=== PATIENT | male | born 1945 | race Caucasian/White ===

== ENCOUNTER 2017-06-15 12:20 | Inpatient (IN) | payer MEDICARE, BC ==
[~2017-06-15] VITALS: Ht 190.5 cm; Wt 106.3 kg
[~2017-06-15 12:20] MED LIST: (None)20 M1 PO; AMLO5 PO; AMOCLA875 PO; ASPI81CH PO; Ambien5 MG PO; BUME2 PO; CHOL10002 PO; CLOP75 PO; Combigan Eye Dro5 ML OP; Combigan Eye Dro5 ML RIGHTEYE; Cranberry500 M1 PO; Crestor20 MG PO; FERR325 PO; FINA5 PO; FURO40 PO; FURO80 PO; HALO1 PO; HYDRA25 PO; LATANOPROST2.5 ML OP; Lisinopril2.5 MG PO; METF500 PO; METO100ER PO; METO50ER PO; Methazolamide50 MG PO; Micro-K10 MEQ PO; OFLO.3OPSO; OLME5TAB PO; PRED1SU BOTHEYES; PROCODE120; QUET100 PO; ROSU5 PO; SERT50 PO; TAMS.4ER PO; TRAZ50 PO; UBID10; UBID100 PO; Xalatan2.5 ML BOTHEYES
[2017-06-15 13:37] LABS: BASOPHILS ABSOLUTE AUTO 0.08 K/mm3 (0.00-0.23); BASOPHILS PERCENT AUTO 1 % (0-2); EOSINOPHILS ABSOLUTE AUTO 0.19 K/mm3 (0.00-0.68); EOSINOPHILS PERCENT AUTO 3 % (0-6); Hematocrit 31.2 % (37.0-53.0); Hemoglobin 10.2 g/dL (13.5-17.5); IMMATURE GRAN ABSOLUTE AUTO 0.02 K/mm3 (0.00-0.10); IMMATURE GRAN PERCENT AUTO 0 % (0-1); LYMPHOCYTES ABSOLUTE AUTO 1.07 K/mm3 (0.84-5.20); LYMPHOCYTES PERCENT AUTO 15 % (21-46); MONOCYTES ABSOLUTE AUTO 0.67 K/mm3 (0.16-1.47); MONOCYTES PERCENT AUTO 10 % (4-13); Mean Corpuscular HGB 31.6 pg (26.0-34.0); Mean Corpuscular HGB Conc 32.7 g/dL (31.5-36.5); Mean Corpuscular Volume 97 fL (80-100); NEUTROPHILS ABSOLUTE AUTO 4.97 K/mm3 (1.96-9.15); NEUTROPHILS PERCENT AUTO 71 % (41-73); RDW Coefficient Variation 13.2 % (11.7-14.2); Red Blood Cell Count 3.23 M/mm3 (4.30-5.90)
[2017-06-15 13:39] LABS: Platelet Count 359 K/mm3 (150-400)
[2017-06-15 13:58] LABS: Alanine Aminotransfer (ALT/SGP 47 U/L (12-78); Albumin, Blood 3.3 g/dL (3.4-5.0); Albumin/Globulin Ratio 0.7 (0.8-1.8); Alk Phos 128 U/L (50-136); Anion Gap 12 mmol/L (6-16); Aspartate Aminotrans (AST/SGOT 25 U/L (12-37); Bilirubin, Total 0.5 mg/dL (0.1-1.0); Blood Urea Nitrogen 32 mg/dL (8-24); Bun/Creatinine Ratio 25.6 (12.0-20.0); CO2, Blood 22 mmol/L (21-32); Calcium, Blood 8.6 mg/dL (8.5-10.1); Chloride, Blood 108 mmol/L (98-108); Creatinine, Blood 1.25 mg/dL (0.60-1.20); Globulin, Blood 4.7 g/dL (2.2-4.0); Glomerular Filtration Rate >60 (60-); Glucose, Blood 146 mg/dL (70-99); Potassium, Blood 4.3 mmol/L (3.5-5.5); Sodium, Blood 142 mmol/L (136-145)
[2017-06-16 05:23] LABS: BASOPHILS ABSOLUTE AUTO 0.07 K/mm3 (0.00-0.23); BASOPHILS PERCENT AUTO 1 % (0-2); EOSINOPHILS PERCENT AUTO 3 % (0-6); Hematocrit 28.1 % (37.0-53.0); Hemoglobin 9.2 g/dL (13.5-17.5); IMMATURE GRAN ABSOLUTE AUTO 0.01 K/mm3 (0.00-0.10); IMMATURE GRAN PERCENT AUTO 0 % (0-1); LYMPHOCYTES PERCENT AUTO 23 % (21-46); MONOCYTES ABSOLUTE AUTO 0.86 K/mm3 (0.16-1.47); MONOCYTES PERCENT AUTO 12 % (4-13); Mean Corpuscular HGB 31.1 pg (26.0-34.0); Mean Corpuscular HGB Conc 32.7 g/dL (31.5-36.5); Mean Corpuscular Volume 95 fL (80-100); NEUTROPHILS ABSOLUTE AUTO 4.19 K/mm3 (1.96-9.15); NEUTROPHILS PERCENT AUTO 61 % (41-73); Platelet Count 329 K/mm3 (150-400); RDW Coefficient Variation 13.2 % (11.7-14.2); RDW Standard Deviation 45.7 fL (35.1-46.3); Red Blood Cell Count 2.96 M/mm3 (4.30-5.90); White Blood Cell Count 6.93 K/mm3 (4.00-11.30)
[2017-06-16 05:58] LABS: Anion Gap 7 mmol/L (6-16); Blood Urea Nitrogen 31 mg/dL (8-24); Bun/Creatinine Ratio 25.2 (12.0-20.0); CO2, Blood 27 mmol/L (21-32); Calcium, Blood 8.1 mg/dL (8.5-10.1); Chloride, Blood 108 mmol/L (98-108); Creatinine, Blood 1.23 mg/dL (0.60-1.20); Glomerular Filtration Rate >60 (60-); Glucose, Blood 111 mg/dL (70-99); Potassium, Blood 3.6 mmol/L (3.5-5.5); Sodium, Blood 142 mmol/L (136-145)
[2017-06-18] MEDS ORDERED: Coq-10100 MG PO (04:45)
[2017-06-18] MEDS ORDERED: Humalog100 UNIT/1 (04:47)
[2017-06-18] MEDS ORDERED: LAMO100 (04:48)
[2017-06-18] MEDS ORDERED: METANX CAPSULE1 EACH PO (04:51)
[2017-06-18] MEDS ORDERED: MIRT15 PO (04:54)
[2017-06-18] MEDS ORDERED: NIFE60ER PO (04:56)
[2017-06-18] MEDS ORDERED: ROSU10TA PO ×2 (04:58→05:17)
[2017-06-18] MEDS ORDERED: SODBIC650 PO (05:00)
[2017-06-18] MEDS ORDERED: BUME1 PO (05:05)
[2017-06-18] MEDS ORDERED: CHOL10002 (05:07)
[2017-06-18] MEDS ORDERED: ASCO500 PO (05:09)
[2017-06-18] MEDS ORDERED: Pred Forte1 ML (05:11)
[2017-06-18] MEDS ORDERED: Micro-K10 MEQ PO (10:22)
[2018-03-23] MEDS ORDERED: Amlodipine Bes2.5 MG PO (20:47)
[2018-03-23] MEDS ORDERED: SODBIC650 PO (20:52)
[2018-03-23] MEDS ORDERED: SERT50 PO (20:52)
[2018-03-23] MEDS ORDERED: [UNRECOGNIZED DRUG - OTHER] PO (20:55)
[2018-03-23] MEDS ORDERED: Cranberry400 MG PO (20:55)
[2018-03-23] MEDS ORDERED: DICL25ER PO (20:56)
[2018-03-24] MEDS ORDERED: QUET25 PO (01:45)
[2018-03-24] MEDS ORDERED: QUET200 PO (01:46)
[2018-03-24] MEDS ORDERED: ASPI81CH PO (17:47)
[2018-03-24] MEDS ORDERED: UBID100 PO (17:48)
[2018-03-24] MEDS ORDERED: ASCO500 PO (17:51)
[2018-03-25] MEDS ORDERED: Vitamin B-12250 MCG PO (11:48)
[2018-03-25] MEDS ORDERED: ACET325 PO (11:48)
[2018-03-25] MEDS ORDERED: LINZESS145 MCG PO (11:49)
[2018-03-25] MEDS ORDERED: PANT40 PO (11:49)
[2018-04-21] MEDS ORDERED: DOCU100 PO (02:44)
[2018-04-21] MEDS ORDERED: THIA100 (02:47)
[2018-04-21] MEDS ORDERED: Xalatan2.5 ML BOTHEYES (02:49)
[2018-04-21] MEDS ORDERED: Seroquel25 MG PO (14:40)
[2018-04-26] MEDS ORDERED: BRIMONIDINE TART5 ML RIGHTEYE (12:47)
[2018-04-26] MEDS ORDERED: KETOROLAC TROMET5 ML BOTHEYES (12:47)
[2018-04-26] MEDS ORDERED: Prednisolone Ace5 ML BOTHEYES (12:49)
== END 2017-06-18 12:47 | disposition home or self-care (01) | DRG 291 ==
LOC: ER 12:20 → MEDS 15:40 → ENPENDDIS 06-18 09:24 → MEDS 06-18 12:47
PROVIDERS: Emergency Medicine; Internal Medicine
DX: I11.0 Hypertensive heart disease with heart failure (principal); J96.01 Acute respiratory failure with hypoxia; G92 Toxic encephalopathy; F03.91 Unspecified dementia, unspecified severity, with behavioral disturbance; I50.33 Acute on chronic diastolic (congestive) heart failure; E11.9 Type 2 diabetes mellitus without complications; R45.1 Restlessness and agitation; Z95.1 Presence of aortocoronary bypass graft; Z91.19 Patient's noncompliance with other medical treatment and regimen; J44.9 Chronic obstructive pulmonary disease, unspecified; Z86.73 Personal history of transient ischemic attack (TIA), and cerebral infarction without residual deficits; I25.10 Atherosclerotic heart disease of native coronary artery without angina pectoris; Z79.02 Long term (current) use of antithrombotics/antiplatelets; Z79.82 Long term (current) use of aspirin; Z87.891 Personal history of nicotine dependence
CPT/HCPCS: 36415; 71046; 71250; 80048; 80053; 82947; 83880; 84484; 85025; 93005; 93010; 93306; 96374; 99285; J1650; J1940; J2060

== ENCOUNTER → 2017-08-21 | Outpatient (CLI) | payer MEDICARE, BC ==
[~2017-08-21] MED LIST changes: +ASCO500 PO; +BUME1 PO; +CHOL10002; -Combigan Eye Dro5 ML RIGHTEYE; +Coq-10100 MG PO; +Humalog100 UNIT/1; +LAMO100; +METANX CAPSULE1 EACH PO; +MIRT15 PO; +NIFE60ER PO; +Pred Forte1 ML; +ROSU10TA PO; +SODBIC650 PO
== END ==
LOC: LAB SHORT 21:10 → OLS 21:10
DX: R19.7 Diarrhea, unspecified (principal)
CPT/HCPCS: 87493

== ENCOUNTER 2018-01-06 14:05 | Inpatient (IN) | payer MEDICARE, BC ==
[~2018-01-06] VITALS: Ht 182.9 cm; Wt 89.0 kg
[~2018-01-06 14:05] MED LIST changes: +Combigan Eye Dro5 ML RIGHTEYE
[2018-01-06 14:48] LABS: BASOPHILS ABSOLUTE AUTO 0.12 K/mm3 (0.00-0.23); BASOPHILS PERCENT AUTO 2 % (0-2); EOSINOPHILS ABSOLUTE AUTO 0.33 K/mm3 (0.00-0.68); EOSINOPHILS PERCENT AUTO 5 % (0-6); Hematocrit 29.4 % (37.0-53.0); Hemoglobin 9.5 g/dL (13.5-17.5); IMMATURE GRAN ABSOLUTE AUTO 0.02 K/mm3 (0.00-0.10); IMMATURE GRAN PERCENT AUTO 0 % (0-1); LYMPHOCYTES ABSOLUTE AUTO 1.44 K/mm3 (0.84-5.20); LYMPHOCYTES PERCENT AUTO 21 % (21-46); MONOCYTES PERCENT AUTO 12 % (4-13); Mean Corpuscular HGB 27.7 pg (26.0-34.0); Mean Corpuscular HGB Conc 32.3 g/dL (31.5-36.5); Mean Corpuscular Volume 86 fL (80-100); Mean Platelet Volume 9.4 fL (9.1-12.4); NEUTROPHILS ABSOLUTE AUTO 4.26 K/mm3 (1.96-9.15); NEUTROPHILS PERCENT AUTO 61 % (41-73); Platelet Count 398 K/mm3 (150-400); RDW Coefficient Variation 15.3 % (11.7-14.2); RDW Standard Deviation 48.6 fL (35.1-46.3); Red Blood Cell Count 3.43 M/mm3 (4.30-5.90); White Blood Cell Count 6.97 K/mm3 (4.00-11.30)
[2018-01-06] MEDS ORDERED: NIFE60ER PO (14:48)
[2018-01-06] MEDS ORDERED: GABA300 PO (14:51)
[2018-01-06] MEDS ORDERED: SODBIC650 PO (14:52)
[2018-01-06 14:55] LABS: Alanine Aminotransfer (ALT/SGP 36 U/L (12-78); Albumin, Blood 3.6 g/dL (3.4-5.0); Albumin/Globulin Ratio 0.8 (0.8-1.8); Alk Phos 150 U/L (50-136); Anion Gap 8 mmol/L (6-16); Aspartate Aminotrans (AST/SGOT 27 U/L (12-37); Bilirubin, Total 0.4 mg/dL (0.1-1.0); Blood Urea Nitrogen 60 mg/dL (8-24); Bun/Creatinine Ratio 35.3 (12.0-20.0); CO2, Blood 21 mmol/L (21-32); Calcium, Blood 8.6 mg/dL (8.5-10.1); Chloride, Blood 110 mmol/L (98-108); Globulin, Blood 4.5 g/dL (2.2-4.0); Glomerular Filtration Rate 42 (60-); Glucose, Blood 93 mg/dL (70-99); Potassium, Blood 4.5 mmol/L (3.5-5.5); Sodium, Blood 139 mmol/L (136-145); Total Protein, Blood 8.1 g/dL (6.4-8.2); Troponin I <0.015 ng/mL (0.000-0.040)
[2018-01-06] MEDS ORDERED: KETO60I BOTHEYES (14:55)
[2018-01-06] MEDS ORDERED: METANX CAPSULE1 EACH PO (18:47)
[2018-01-06] MEDS ORDERED: ASPI81CH PO (18:48)
[2018-01-06] MEDS ORDERED: ASCO500 PO (18:48)
[2018-01-06] MEDS ORDERED: UBID100 PO (18:49)
[2018-01-06] MEDS ORDERED: Cranberry300 MG PO (18:49)
[2018-01-06] MEDS ORDERED: CHOL10002 PO (18:50)
[2018-01-06] MEDS ORDERED: [UNRECOGNIZED DRUG - OTHER] PO (18:51)
[2018-01-07 07:36] LABS: Bun/Creatinine Ratio 36.4 (12.0-20.0); Calcium, Blood 7.9 mg/dL (8.5-10.1); Creatinine, Blood 1.76 mg/dL (0.60-1.20); Potassium, Blood 4.1 mmol/L (3.5-5.5); Troponin I 0.021 ng/mL (0.000-0.040)
[2018-01-07 20:47] LABS: Source, Urine Voided
[2018-01-07 20:49] LABS: Bilirubin, Urine Neg (Neg); Blood, Urine Neg (Neg); Glucose Qualitative, Urine Neg (Neg); Ketones, Urine Neg (Neg); Leukocyte Esterase, Urine Neg (Neg); Nitrite, Urine Neg (Neg); Protein, Urine Neg (Neg); Specific Gravity, Urine 1.015 (1.003-1.022); Urobilinogen, Urine NORM (Normal)
[2018-01-07 20:55] LABS: Appearance, Urine Clear (Clear); Color, Urine Pale Yellow (P-Yellow)
[2018-01-08 08:12] LABS: Bun/Creatinine Ratio 35.1 (12.0-20.0); Calcium, Blood 8.5 mg/dL (8.5-10.1); Creatinine, Blood 1.54 mg/dL (0.60-1.20); Potassium, Blood 4.1 mmol/L (3.5-5.5)
[2018-01-08] MEDS ORDERED: AMLO5 PO (11:38)
== END 2018-01-08 12:26 | disposition home or self-care (01) | DRG 309 ==
LOC: ER 14:05 → PCU 14:06
PROVIDERS: Emergency Medicine; Internal Medicine; Internal Medicine Interventional Cardiology
DX: R00.1 Bradycardia, unspecified (principal); N17.9 Acute kidney failure, unspecified; I13.0 Hypertensive heart and chronic kidney disease with heart failure and stage 1 through stage 4 chronic kidney disease, or unspecified chronic kidney disease; F03.91 Unspecified dementia, unspecified severity, with behavioral disturbance; I50.32 Chronic diastolic (congestive) heart failure; I95.9 Hypotension, unspecified; Z86.73 Personal history of transient ischemic attack (TIA), and cerebral infarction without residual deficits; Z87.891 Personal history of nicotine dependence; N18.9 Chronic kidney disease, unspecified; R33.9 Retention of urine, unspecified; I44.0 Atrioventricular block, first degree; I35.0 Nonrheumatic aortic (valve) stenosis; I25.10 Atherosclerotic heart disease of native coronary artery without angina pectoris; Z95.1 Presence of aortocoronary bypass graft; T44.7X5A Adverse effect of beta-adrenoreceptor antagonists, initial encounter; Y92.9 Unspecified place or not applicable; E11.22 Type 2 diabetes mellitus with diabetic chronic kidney disease
CPT/HCPCS: 36415; 71046; 80048; 80053; 81003; 82947; 83735; 83880; 84484; 85025; 93005; 93010; 99285-25; J0461; J1650; J7030

== ENCOUNTER 2018-02-15 15:12 | Emergency (ER) | payer MEDICARE, BC ==
[~2018-02-15] VITALS: Ht 177.8 cm; Wt 79.4 kg
[~2018-02-15 15:12] MED LIST changes: +Cranberry300 MG PO; +GABA300 PO; +KETO60I BOTHEYES; +[UNRECOGNIZED DRUG - OTHER] PO
[2018-02-15 16:06] LABS: BASOPHILS ABSOLUTE AUTO 0.06 K/mm3 (0.00-0.23); BASOPHILS PERCENT AUTO 1 % (0-2); EOSINOPHILS ABSOLUTE AUTO 0.04 K/mm3 (0.00-0.68); EOSINOPHILS PERCENT AUTO 1 % (0-6); Hematocrit 29.2 % (37.0-53.0); Hemoglobin 9.2 g/dL (13.5-17.5); IMMATURE GRAN ABSOLUTE AUTO 0.02 K/mm3 (0.00-0.10); IMMATURE GRAN PERCENT AUTO 0 % (0-1); LYMPHOCYTES ABSOLUTE AUTO 0.67 K/mm3 (0.84-5.20); LYMPHOCYTES PERCENT AUTO 8 % (21-46); MONOCYTES ABSOLUTE AUTO 0.48 K/mm3 (0.16-1.47); MONOCYTES PERCENT AUTO 6 % (4-13); Mean Corpuscular HGB 26.7 pg (26.0-34.0); Mean Corpuscular HGB Conc 31.5 g/dL (31.5-36.5); Mean Corpuscular Volume 85 fL (80-100); Mean Platelet Volume 9.8 fL (9.1-12.4); NEUTROPHILS ABSOLUTE AUTO 6.97 K/mm3 (1.96-9.15); NEUTROPHILS PERCENT AUTO 85 % (41-73); Platelet Count 392 K/mm3 (150-400); RDW Coefficient Variation 18.4 % (11.7-14.2); RDW Standard Deviation 56.1 fL (35.1-46.3); Red Blood Cell Count 3.45 M/mm3 (4.30-5.90); White Blood Cell Count 8.24 K/mm3 (4.00-11.30)
[2018-02-15 16:18] LABS: International Normalized Ratio 1.04; Prothrombin Time Results 10.7 Sec (9.7-11.5)
[2018-02-15 16:23] LABS: Source, Urine Clean Catch
[2018-02-15 16:26] LABS: Appearance, Urine Clear (Clear); Bilirubin, Urine Neg (Neg); Blood, Urine Neg (Neg); Color, Urine Yellow (P-Yellow); Glucose Qualitative, Urine Neg (Neg); Ketones, Urine 1+ (Neg); Leukocyte Esterase, Urine Neg (Neg); Nitrite, Urine Neg (Neg); Protein, Urine 1+ (Neg); Urobilinogen, Urine NORM (Normal)
[2018-02-15 16:27] LABS: Albumin, Blood 3.6 g/dL (3.4-5.0); Albumin/Globulin Ratio 0.8 (0.8-1.8); Bilirubin, Total 0.4 mg/dL (0.1-1.0); Calcium, Blood 8.5 mg/dL (8.5-10.1); Creatinine, Blood 1.47 mg/dL (0.60-1.20); Globulin, Blood 4.8 g/dL (2.2-4.0); Potassium, Blood 3.9 mmol/L (3.5-5.5); Total Protein, Blood 8.4 g/dL (6.4-8.2)
== END 2018-02-15 18:12 | disposition home or self-care (01) ==
LOC: ER 15:12
PROVIDERS: Physician Assistant
DX: F03.90 Unspecified dementia, unspecified severity, without behavioral disturbance, psychotic disturbance, mood disturbance, and anxiety (principal); F41.9 Anxiety disorder, unspecified; E11.9 Type 2 diabetes mellitus without complications; Z88.5 Allergy status to narcotic agent; Z88.8 Allergy status to other drugs, medicaments and biological substances; Z79.899 Other long term (current) drug therapy; Z79.01 Long term (current) use of anticoagulants; Z79.82 Long term (current) use of aspirin; Z86.73 Personal history of transient ischemic attack (TIA), and cerebral infarction without residual deficits
CPT/HCPCS: 36415; 70450; 80053; 85025; 85610; 93005; 93010; 96360; 99284-25; J7030

== ENCOUNTER 2018-02-17 16:24 | Inpatient (IN) | payer MEDICARE, BC ==
[~2018-02-17] VITALS: Ht 180.3 cm; Wt 81.5 kg
[2018-02-17 17:29] LABS: BASOPHILS ABSOLUTE AUTO 0.11 K/mm3 (0.00-0.23); BASOPHILS PERCENT AUTO 1 % (0-2); EOSINOPHILS ABSOLUTE AUTO 0.18 K/mm3 (0.00-0.68); EOSINOPHILS PERCENT AUTO 2 % (0-6); IMMATURE GRAN ABSOLUTE AUTO 0.03 K/mm3 (0.00-0.10); IMMATURE GRAN PERCENT AUTO 0 % (0-1); LYMPHOCYTES ABSOLUTE AUTO 0.87 K/mm3 (0.84-5.20); LYMPHOCYTES PERCENT AUTO 11 % (21-46); MONOCYTES ABSOLUTE AUTO 0.84 K/mm3 (0.16-1.47); MONOCYTES PERCENT AUTO 11 % (4-13); Mean Corpuscular HGB 26.3 pg (26.0-34.0); Mean Corpuscular Volume 85 fL (80-100); Mean Platelet Volume 9.4 fL (9.1-12.4); NEUTROPHILS ABSOLUTE AUTO 5.93 K/mm3 (1.96-9.15); NEUTROPHILS PERCENT AUTO 74 % (41-73); Platelet Count 423 K/mm3 (150-400); RDW Coefficient Variation 19.1 % (11.7-14.2); RDW Standard Deviation 58.5 fL (35.1-46.3); Red Blood Cell Count 3.42 M/mm3 (4.30-5.90); White Blood Cell Count 7.96 K/mm3 (4.00-11.30)
[2018-02-17 17:51] LABS: Albumin, Blood 3.5 g/dL (3.4-5.0); Albumin/Globulin Ratio 0.8 (0.8-1.8); Bilirubin, Total 0.7 mg/dL (0.1-1.0); Bun/Creatinine Ratio 25.7 (12.0-20.0); Calcium, Blood 8.8 mg/dL (8.5-10.1); Creatinine, Blood 1.67 mg/dL (0.60-1.20); Globulin, Blood 4.4 g/dL (2.2-4.0); Magnesium, Blood 2.3 mg/dL (1.6-2.4); Potassium, Blood 3.9 mmol/L (3.5-5.5); Total Protein, Blood 7.9 g/dL (6.4-8.2); Troponin I 0.035 ng/mL (0.000-0.040)
[2018-02-17 17:56] LABS: Thyroid Stimulating Hormone 1.83 uIU/mL (0.360-4.800)
[2018-02-17 18:15] LABS: Source, Urine Clean Catch
[2018-02-17 18:33] LABS: Bilirubin, Urine Neg (Neg); Blood, Urine Neg (Neg); Glucose Qualitative, Urine Neg (Neg); Ketones, Urine 1+ (Neg); Leukocyte Esterase, Urine Neg (Neg); Nitrite, Urine Neg (Neg); Protein, Urine 2+ (Neg); Specific Gravity, Urine 1.015 (1.003-1.022); Urobilinogen, Urine NORM (Normal)
[2018-02-17 18:45] LABS: Appearance, Urine Clear (Clear); Color, Urine Yellow (P-Yellow)
[2018-02-17 18:47] LABS: Amorphous Light (0-Heavy); Bacteria Not Seen /hpf; Red Blood Cells, Urine 0-2 /hpf (0-2); Squamous Epithelial Cells Not Seen /hpf (Few); White Blood Cells, Urine Not Seen /hpf (0-5)
[2018-02-17 19:04] LABS: U Amphetamine Screen Not Detected; U Barbituate Screen Not Detected; U Benzodiazapine Screen Not Detected; U Buprenorphine Screen Not Detected; U Cannabinoids Screen Not Detected; U Cocaine Screen Not Detected; U Methadone Screen Not Detected; U Methamphetamine Screen Not Detected; U Opiates Screen Not Detected; U Oxycodone Screen Not Detected; U Phencyclidine Screen Not Detected; U Propoxyphene Screen Not Detected
[2018-02-17 21:49] LABS: International Normalized Ratio 1.07
[2018-02-17] MEDS ORDERED: QUET25 PO (22:38)
[2018-02-17] MEDS ORDERED: LINZESS145 MCG PO (22:40)
[2018-02-17] MEDS ORDERED: Humalog100 UNIT/1 SC (22:44)
[2018-02-17] MEDS ORDERED: LACT10SY PO (22:58)
[2018-02-17] MEDS ORDERED: DOCU100 PO (22:59)
[2018-02-17] MEDS ORDERED: Xalatan2.5 ML BOTHEYES (23:03)
[2018-02-17] MEDS ORDERED: Combigan Eye Dro5 ML RIGHTEYE (23:15)
[2018-02-17] MEDS ORDERED: CYAN500 PO (23:18)
[2018-02-17] MEDS ORDERED: ACET325 PO (23:19)
[2018-02-18 04:56] LABS: Hematocrit 27.2 % (37.0-53.0); Hemoglobin 8.5 g/dL (13.5-17.5); Mean Corpuscular HGB 26.5 pg (26.0-34.0); Mean Corpuscular HGB Conc 31.3 g/dL (31.5-36.5); Mean Corpuscular Volume 85 fL (80-100); Mean Platelet Volume 9.7 fL (9.1-12.4); Platelet Count 383 K/mm3 (150-400); RDW Coefficient Variation 19.3 % (11.7-14.2); RDW Standard Deviation 59.4 fL (35.1-46.3); Red Blood Cell Count 3.21 M/mm3 (4.30-5.90); White Blood Cell Count 6.85 K/mm3 (4.00-11.30)
[2018-02-18 05:19] LABS: Albumin, Blood 3.1 g/dL (3.4-5.0); Albumin/Globulin Ratio 0.8 (0.8-1.8); Bilirubin, Total 0.4 mg/dL (0.1-1.0); Bun/Creatinine Ratio 25.3 (12.0-20.0); Calcium, Blood 8.1 mg/dL (8.5-10.1); Creatinine, Blood 1.5 mg/dL (0.60-1.20); Potassium, Blood 3.7 mmol/L (3.5-5.5); Total Protein, Blood 7.1 g/dL (6.4-8.2)
[2018-02-18 11:53] LABS: Source, Urine Clean Catch
[2018-02-18 11:59] LABS: Bilirubin, Urine Neg (Neg); Blood, Urine Neg (Neg); Glucose Qualitative, Urine Neg (Neg); Ketones, Urine 2+ (Neg); Leukocyte Esterase, Urine 1+ (Neg); Nitrite, Urine Neg (Neg); Protein, Urine 2+ (Neg); Specific Gravity, Urine 1.015 (1.003-1.022); Urobilinogen, Urine NORM (Normal)
[2018-02-18 12:12] LABS: Appearance, Urine Clear (Clear); Color, Urine Yellow (P-Yellow)
[2018-02-18 12:16] LABS: Bacteria Rare /hpf; Red Blood Cells, Urine Not Seen /hpf (0-2); Squamous Epithelial Cells Not Seen /hpf (Few)
[2018-02-19 06:26] LABS: BASOPHILS ABSOLUTE AUTO 0.07 K/mm3 (0.00-0.23); BASOPHILS PERCENT AUTO 1 % (0-2); EOSINOPHILS ABSOLUTE AUTO 0.44 K/mm3 (0.00-0.68); EOSINOPHILS PERCENT AUTO 6 % (0-6); Hematocrit 23.7 % (37.0-53.0); Hemoglobin 7.4 g/dL (13.5-17.5); IMMATURE GRAN ABSOLUTE AUTO 0.02 K/mm3 (0.00-0.10); IMMATURE GRAN PERCENT AUTO 0 % (0-1); LYMPHOCYTES ABSOLUTE AUTO 1.08 K/mm3 (0.84-5.20); LYMPHOCYTES PERCENT AUTO 14 % (21-46); MONOCYTES ABSOLUTE AUTO 0.92 K/mm3 (0.16-1.47); MONOCYTES PERCENT AUTO 12 % (4-13); Mean Corpuscular HGB 26.5 pg (26.0-34.0); Mean Corpuscular HGB Conc 31.2 g/dL (31.5-36.5); Mean Corpuscular Volume 85 fL (80-100); Mean Platelet Volume 9.9 fL (9.1-12.4); NEUTROPHILS ABSOLUTE AUTO 5.17 K/mm3 (1.96-9.15); NEUTROPHILS PERCENT AUTO 67 % (41-73); Platelet Count 366 K/mm3 (150-400); RDW Coefficient Variation 19.4 % (11.7-14.2); RDW Standard Deviation 59.4 fL (35.1-46.3); Red Blood Cell Count 2.79 M/mm3 (4.30-5.90)
[2018-02-19 06:46] LABS: Bun/Creatinine Ratio 24.8 (12.0-20.0); Calcium, Blood 8.2 mg/dL (8.5-10.1); Creatinine, Blood 1.45 mg/dL (0.60-1.20); Potassium, Blood 3.6 mmol/L (3.5-5.5)
[2018-02-19] MEDS ORDERED: PREDNISOLONE5 GM BOTHEYES (14:58)
[2018-02-19] MEDS ORDERED: KETOROLAC TROMET5 M2 BOTHEYES (14:59)
[2018-02-20 06:06] LABS: BASOPHILS ABSOLUTE AUTO 0.08 K/mm3 (0.00-0.23); BASOPHILS PERCENT AUTO 1 % (0-2); EOSINOPHILS ABSOLUTE AUTO 0.33 K/mm3 (0.00-0.68); EOSINOPHILS PERCENT AUTO 6 % (0-6); Hematocrit 28.4 % (37.0-53.0); Hemoglobin 9.1 g/dL (13.5-17.5); IMMATURE GRAN ABSOLUTE AUTO 0.03 K/mm3 (0.00-0.10); IMMATURE GRAN PERCENT AUTO 1 % (0-1); LYMPHOCYTES ABSOLUTE AUTO 1.12 K/mm3 (0.84-5.20); LYMPHOCYTES PERCENT AUTO 19 % (21-46); MONOCYTES ABSOLUTE AUTO 0.86 K/mm3 (0.16-1.47); MONOCYTES PERCENT AUTO 14 % (4-13); Mean Corpuscular HGB 26.5 pg (26.0-34.0); Mean Corpuscular Volume 83 fL (80-100); Mean Platelet Volume 9.8 fL (9.1-12.4); NEUTROPHILS ABSOLUTE AUTO 3.54 K/mm3 (1.96-9.15); NEUTROPHILS PERCENT AUTO 60 % (41-73); Platelet Count 266 K/mm3 (150-400); RDW Coefficient Variation 19.2 % (11.7-14.2); RDW Standard Deviation 57.4 fL (35.1-46.3); Red Blood Cell Count 3.43 M/mm3 (4.30-5.90); White Blood Cell Count 5.96 K/mm3 (4.00-11.30)
[2018-02-20 06:37] LABS: Creatinine, Blood 1.52 mg/dL (0.60-1.20)
[2018-02-20] MEDS ORDERED: BISA10S PR (11:58)
[2018-02-20] MEDS ORDERED: Milk Of Ma400 MG/5 M PO (11:59)
[2018-02-20] MEDS ORDERED: LEVO750 PO (11:59)
[2018-02-20] MEDS ORDERED: ONDA4ODT MM (12:00)
== END 2018-02-20 12:34 | disposition home or self-care (01) | DRG 884 ==
LOC: ER 16:24 → PCU 20:53 → MEDS 02-18 14:03 → ENPENDDIS 02-20 11:20 → MEDS 02-20 12:34
PROVIDERS: Emergency Medicine; Family Medicine; Internal Medicine
DX: F03.91 Unspecified dementia, unspecified severity, with behavioral disturbance (principal); N39.0 Urinary tract infection, site not specified; I13.0 Hypertensive heart and chronic kidney disease with heart failure and stage 1 through stage 4 chronic kidney disease, or unspecified chronic kidney disease; I50.30 Unspecified diastolic (congestive) heart failure; F05 Delirium due to known physiological condition; B95.2 Enterococcus as the cause of diseases classified elsewhere; E11.22 Type 2 diabetes mellitus with diabetic chronic kidney disease; N18.3 Chronic kidney disease, stage 3 (moderate); E86.0 Dehydration; F03.90 Unspecified dementia, unspecified severity, without behavioral disturbance, psychotic disturbance, mood disturbance, and anxiety; R33.9 Retention of urine, unspecified; Z86.73 Personal history of transient ischemic attack (TIA), and cerebral infarction without residual deficits; D64.9 Anemia, unspecified; G32.89 Other specified degenerative disorders of nervous system in diseases classified elsewhere
CPT/HCPCS: 36415; 51701; 70450; 71046; 74176; 76700; 80048; 80053; 81001; 82140; 82947; 83605; 83690; 83735; 83880; 84145; 84443; 84484; 85025; 85027; 85610; 87077; 87086; 87186; 93005; 93010; 96360; 96361; 96374; 99284-25; 99285-25; J1630; J1650; J1956; J2060; J2916; J7030

== ENCOUNTER 2018-07-05 17:50 | Observation (INO) | payer MEDICARE, BC ==
[~2018-07-05] VITALS: Ht 185.4 cm; Wt 92.1 kg
[~2018-07-05 17:50] MED LIST changes: +ACET325 PO; +Amlodipine Bes2.5 MG PO; +BISA10S PR; +BRIMONIDINE TART5 ML RIGHTEYE; +CYAN500 PO; +Cranberry400 MG PO; +DICL25ER PO; +DOCU100 PO; +Humalog100 UNIT/1 SC; +KETOROLAC TROMET5 M2 BOTHEYES; +KETOROLAC TROMET5 ML BOTHEYES; +LACT10SY PO; +LEVO750 PO; +LINZESS145 MCG PO; +Milk Of Ma400 MG/5 M PO; +ONDA4ODT MM; +PANT40 PO; +PREDNISOLONE5 GM BOTHEYES; +Prednisolone Ace5 ML BOTHEYES; +QUET200 PO; +QUET25 PO; +Seroquel25 MG PO; +THIA100; +Vitamin B-12250 MCG PO; +[UNRECOGNIZED DRUG - OTHER] PO
[2018-07-05 19:39] LABS: BASOPHILS PERCENT AUTO 1 % (0-2); EOSINOPHILS ABSOLUTE AUTO 0.28 K/mm3 (0.00-0.68); EOSINOPHILS PERCENT AUTO 3 % (0-6); Hematocrit 24.4 % (37.0-53.0); Hemoglobin 7.4 g/dL (13.5-17.5); IMMATURE GRAN ABSOLUTE AUTO 0.03 K/mm3 (0.00-0.10); IMMATURE GRAN PERCENT AUTO 0 % (0-1); LYMPHOCYTES ABSOLUTE AUTO 1.11 K/mm3 (0.84-5.20); LYMPHOCYTES PERCENT AUTO 13 % (21-46); MONOCYTES ABSOLUTE AUTO 0.69 K/mm3 (0.16-1.47); MONOCYTES PERCENT AUTO 8 % (4-13); Mean Corpuscular HGB Conc 30.3 g/dL (31.5-36.5); Mean Corpuscular Volume 92 fL (80-100); Mean Platelet Volume 10.1 fL (9.1-12.4); NEUTROPHILS ABSOLUTE AUTO 6.69 K/mm3 (1.96-9.15); NEUTROPHILS PERCENT AUTO 75 % (41-73); Platelet Count 348 K/mm3 (150-400); RDW Coefficient Variation 19.8 % (11.7-14.2); RDW Standard Deviation 65.8 fL (35.1-46.3); Red Blood Cell Count 2.64 M/mm3 (4.30-5.90)
[2018-07-05 20:08] LABS: Albumin, Blood 3.6 g/dL (3.4-5.0); Albumin/Globulin Ratio 0.9 (0.8-1.8); Bilirubin, Total 0.3 mg/dL (0.1-1.0); Bun/Creatinine Ratio 50.3 (12.0-20.0); Calcium, Blood 8.3 mg/dL (8.5-10.1); Creatinine, Blood 1.47 mg/dL (0.60-1.20); Globulin, Blood 4.2 g/dL (2.2-4.0); Potassium, Blood 4.4 mmol/L (3.5-5.5); Total Protein, Blood 7.8 g/dL (6.4-8.2)
[2018-07-05] MEDS ORDERED: METANX CAPSULE1 EACH PO (22:14)
[2018-07-06 05:39] LABS: Hematocrit 22.1 % (37.0-53.0); Hemoglobin 6.9 g/dL (13.5-17.5); Mean Corpuscular HGB 28.4 pg (26.0-34.0); Mean Corpuscular HGB Conc 31.2 g/dL (31.5-36.5); Mean Corpuscular Volume 91 fL (80-100); Mean Platelet Volume 10.4 fL (9.1-12.4); Platelet Count 310 K/mm3 (150-400); RDW Coefficient Variation 18.8 % (11.7-14.2); RDW Standard Deviation 61.9 fL (35.1-46.3); Red Blood Cell Count 2.43 M/mm3 (4.30-5.90); White Blood Cell Count 7.96 K/mm3 (4.00-11.30)
[2018-07-06 05:45] LABS: Hematocrit 22.2 % (37.0-53.0); Hemoglobin 6.9 g/dL (13.5-17.5)
[2018-07-06 05:57] LABS: Albumin/Globulin Ratio 0.9 (0.8-1.8); Bilirubin, Total 0.6 mg/dL (0.1-1.0); Bun/Creatinine Ratio 46.4 (12.0-20.0); Calcium, Blood 7.8 mg/dL (8.5-10.1); Creatinine, Blood 1.53 mg/dL (0.60-1.20); Globulin, Blood 3.5 g/dL (2.2-4.0); Potassium, Blood 4.3 mmol/L (3.5-5.5); Total Protein, Blood 6.5 g/dL (6.4-8.2)
--- NOTE | 2018-07-06 09:26 | NUR ---
ISTRATE HERE TO SEE PT.
--- NOTE | 2018-07-06 11:16 | NUR ---
UNIT OF BLOOD COMPLETE. LASIX GIVEN. LS CLEAR. PT REPORTS DOING FINE AT THIS TIME.
--- NOTE | 2018-07-06 11:18 | NUR ---
DISCUSSED WITH LAB THEY WERE HERE TO DRAW PT THAT DR CACERES TO HAVE 1 HOUR AFTER TRANSFUSION COMPLETE.
--- NOTE | 2018-07-06 11:31 | NUR ---
OTHER CAREGIVER HERE.
[2018-07-06 12:35] LABS: Hematocrit 27.2 % (37.0-53.0); Hemoglobin 8.8 g/dL (13.5-17.5)
--- NOTE | 2018-07-06 14:00 | NUR ---
ISTRATE RECENTLY NOTIFIED OF PT'S H+H. REPORTS WILL WRITE D/C ORDERS. CAREGIVER AND PT REPORT READY TO GO HOME SOON POSSIBLE. IV OUT AND TELE DC'D PT GETTING READY TO GO HOME.
--- NOTE | 2018-07-06 15:31 | NUR ---
DISCHARGE: PT AND CAREGIVER REPORTS READY TO GO HOME. PT DENIES SOB, DIZZINESS. CAREGIVER REPORTS UNDERSTANDING OF DISCHARGE INSTRUCTIONS. CAREGIVER REPORTS THAT PT HAS SUPPOSITORY AND ZOFRAN AT HOME ALREADY AND DOES NOT WISH FOR THEM TO BE FILLED AT THIS TIME. PT EATING AND DRINKING, VOIDING AND PASSING GAS. PT IV OUT WNL EARLIER TODAY. PT OUT OF HOSPITAL WITH CAREGIVER GIVING RIDE HOME.
== END 2018-07-06 15:41 | disposition home or self-care (01) ==
LOC: ER 17:50 → SURS 17:51
PROVIDERS: Physician Assistant; ADMIT Internal Medicine
DX: D64.9 Anemia, unspecified (principal); R06.00 Dyspnea, unspecified; F01.51 Vascular dementia, unspecified severity, with behavioral disturbance; I25.10 Atherosclerotic heart disease of native coronary artery without angina pectoris; I13.0 Hypertensive heart and chronic kidney disease with heart failure and stage 1 through stage 4 chronic kidney disease, or unspecified chronic kidney disease; E11.22 Type 2 diabetes mellitus with diabetic chronic kidney disease; I50.32 Chronic diastolic (congestive) heart failure; N18.3 Chronic kidney disease, stage 3 (moderate); Z88.5 Allergy status to narcotic agent; Z88.8 Allergy status to other drugs, medicaments and biological substances; Z79.899 Other long term (current) drug therapy
CPT/HCPCS: 36415; 36430; 71045; 80053; 82947; 83880; 85014; 85018; 85025; 85027; 86850; 86900; 86901; 86923; 93005; 93010; 96374; 96375; 99285-25; C9113; G0378; J1940; J7030; P9016

== ENCOUNTER → 2018-12-11 | Outpatient (CLI) | payer MEDICARE, BC ==
[2018-12-11 11:22] LABS: Bilirubin, Urine Neg (Neg); Blood, Urine Neg (Neg); Glucose Qualitative, Urine Neg (Neg); Ketones, Urine Neg (Neg); Leukocyte Esterase, Urine Neg (Neg); Nitrite, Urine Neg (Neg); Protein, Urine 1+ (Neg); Specific Gravity, Urine 1.015 (1.003-1.022); Urobilinogen, Urine NORM (Normal)
[2018-12-11 11:23] LABS: Appearance, Urine Clear (Clear); Color, Urine Yellow (P-Yellow)
== END | disposition home or self-care (01) ==
LOC: LAB SHORT 11:05 → LAB 11:05
PROVIDERS: Internal Medicine
DX: R35.0 Frequency of micturition (principal)
CPT/HCPCS: 81003

== ENCOUNTER → 2019-02-15 | Outpatient (CLI) | payer MEDICARE, BC | END | disposition home or self-care (01) | LOC: LAB 17:28 → LAB SHORT 17:28 | DX: R30.0 Dysuria (principal) | CPT/HCPCS: 87086 ==

== ENCOUNTER → 2019-03-24 | Outpatient (CLI) | payer MEDICARE, BC | END | disposition home or self-care (01) | LOC: LAB 14:00 → LAB SHORT 14:00 | DX: R30.0 Dysuria (principal) | CPT/HCPCS: 87077; 87086; 87186 ==

== ENCOUNTER 2019-06-14 08:05 | Day surgery (SDC) | payer MEDICARE, BC ==
[2019-06-14] MEDS ORDERED: METO100ER PO (14:05)
[2019-06-14] MEDS ORDERED: PLAVIX75 MG PO (14:05)
[2019-06-14] MEDS ORDERED: NIFE30ER PO (14:05)
== END 2019-06-14 17:54 | disposition home or self-care (01) ==
LOC: ATC 08:05
DX: I12.9 Hypertensive chronic kidney disease with stage 1 through stage 4 chronic kidney disease, or unspecified chronic kidney disease (principal); E11.22 Type 2 diabetes mellitus with diabetic chronic kidney disease; N18.3 Chronic kidney disease, stage 3 (moderate); D63.1 Anemia in chronic kidney disease; N25.81 Secondary hyperparathyroidism of renal origin; E78.5 Hyperlipidemia, unspecified; F01.50 Vascular dementia, unspecified severity, without behavioral disturbance, psychotic disturbance, mood disturbance, and anxiety; I25.10 Atherosclerotic heart disease of native coronary artery without angina pectoris; I25.2 Old myocardial infarction; E86.9 Volume depletion, unspecified; E11.21 Type 2 diabetes mellitus with diabetic nephropathy; D50.9 Iron deficiency anemia, unspecified; E11.51 Type 2 diabetes mellitus with diabetic peripheral angiopathy without gangrene; E55.9 Vitamin D deficiency, unspecified; Z88.5 Allergy status to narcotic agent; Z88.8 Allergy status to other drugs, medicaments and biological substances; Z79.4 Long term (current) use of insulin; Z79.82 Long term (current) use of aspirin; Z79.899 Other long term (current) drug therapy
CPT/HCPCS: 36415; 36430; 86850; 86900; 86901; 86923; 96365; J7050; P9016

== ENCOUNTER 2020-01-05 06:02 | Day surgery (SDC) | payer MEDICARE, BC ==
[~2020-01-05] VITALS: Ht 185.4 cm; Wt 91.2 kg
[~2020-01-05 06:02] MED LIST changes: +AMLODIPINE BESYL5 MG PO; +Aspirin EC81 MG PO; +CEFD300 PO; +HUMALOG KW100 UNIT/1 SC; -Humalog100 UNIT/1 SC; +Klor-Con 1010 MEQ PO; +NEURONTIN300 MG PO; +NIFE30ER PO; +PLAVIX75 MG PO; +QUETIAPINE FUMA50 MG PO; +ROSUVASTATIN CA20 MG PO; +Seroquel Xr50 MG PO; +Sodium Bicarbo650 MG PO; +TAMSULOSIN HCL0.4 M1 PO; +VITAMIN D31000 UNI1 PO; +XARELTO2.5 M1 PO; +XARELTO20 MG PO; +ZOLOFT50 MG PO
[2020-01-05] MEDS ORDERED: BUME1 PO (06:29)
[2020-01-05] MEDS ORDERED: XARELTO20 MG PO (06:35)
--- NOTE | 2020-01-05 09:15 | NUR ---
ANSHUL RECIEVED FROM BRIDGER Arriaza RN. PT'S SON AT BEDSIDE.
--- NOTE | 2020-01-05 11:05 | NUR ---
TRANSFER- PT REMAINED A&O DURING TIME IN RECOVERY. SITE HAS ICE IN PLACE-REMAINS CDI-NO HEMATOMA NOTED. BRIDGER Arriaza RN TRANSPORTED AND GAVE REPORT TO PCU.
--- NOTE | 2020-01-05 11:18 | NUR ---
[facility], and report at bedside was given to Evi Canada by Meagan Burnett. The pt is asleep, and very drowsy. His primary caregiver, Daysi, is at the bedside. Medications, pt history, and pt baseline is reviewed with her at this time.
--- NOTE | 2020-01-05 13:48 | NUR ---
The pt is now talking with the caregiver, keeping his eyes closed. He was heard telling the caregiver that "you made me get a procedure done that I didn't even want, and now you have screwed yourself." The previous caregiver, Daysi, told us that the patient can be very inappropriate and aggressive at times in his conversation, but it is best just ignored or left unresponded to. She said that he does it for the effect that it has on others. I asked the pt if he is having any pain at this time, and he denied it. Asked if he is hungry or thirsty, and he said, "No". Asked if there is anything that he or the caregiver need at this time, and ice water was requested and provided to the caregiver at the bedside. CXR being done at this time in the room.
--- NOTE | 2020-01-05 16:16 | NUR ---
Pt was c/o soreness in his left chest. He was given Tylenol and repositioned on to his right side. Vital signs are stable. The pt has been sleeping, only talking occasionally, but awakens easily. Left chest wall surgical site is WNL. Dressing of nonadherent gauze and tegederm is clean, dry, and intact. There is no bruising, bleeding and only small amount of swelling surrounding the area. Sling is being worn by the patient to protect the arm from movement which would compromise the lead placement.
--- NOTE | 2020-01-05 17:36 | NUR ---
The pt has had an uneventful recovery period this afternoon. He has been sleeping most of the time, with a caregiver at the bedside. He awakens easily. His left chest wall surgical site is without anything remarkable or unusual. Dressing clean, dry and intact. MInimal swelling and no bruising, bleeding or drainage. The pt was given Tylenol for relief of pain on the left chest wall. He has been eating and drinking.
--- NOTE | 2020-01-06 07:05 | NUR ---
SHIFT SUMMARY PT A&O X2; VSS; C/O OF LCW OP SITE PAIN; L ARM IN SLING; EDUCATED ON NOT USING ARM; PACED IN 60'S NOTED ON TELE; O2 SATS >93 ON RA; CAREGIVER ASLEEP AT BEDSIDE; PT ANGRY AND AGGRESSIVE DURING 2099 MED PASS; THREW PILL CUP ACROSS ROOM AND REFUSED MEDS; REFUSED AM VITALS; CALL LIGHT IN REACH; BED IN LOWEST POSITION; CONTINUE TO MONITOR CLOSELY UNTIL HAND OFF TO DAY SHIFT RN.
--- NOTE | 2020-01-06 08:57 | NUR ---
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 CALL LIGHT IN REACH.
--- NOTE | 2020-01-06 09:15 | NUR ---
PT DRESSED, LEFT VIA WHEELCHAIR WITH CAREGIVER IN ATTENDENCE WITH ALL BELONGINGS AND INSTRUCTIONS.
== END 2020-01-06 09:13 | disposition home or self-care (01) ==
LOC: MHTC 06:02 → PCU 10:48 → MHTC 01-06 09:13
DX: R55 Syncope and collapse (principal); R00.1 Bradycardia, unspecified; I48.21 Permanent atrial fibrillation; I12.9 Hypertensive chronic kidney disease with stage 1 through stage 4 chronic kidney disease, or unspecified chronic kidney disease; E11.22 Type 2 diabetes mellitus with diabetic chronic kidney disease; I25.10 Atherosclerotic heart disease of native coronary artery without angina pectoris; N18.3 Chronic kidney disease, stage 3 (moderate); E78.5 Hyperlipidemia, unspecified; F32.9 Major depressive disorder, single episode, unspecified; Z79.4 Long term (current) use of insulin; Z79.82 Long term (current) use of aspirin; Z79.899 Other long term (current) drug therapy; Z87.891 Personal history of nicotine dependence
CPT/HCPCS: 33207; 71045; 71046; 76937; 82947; 99152; 99153; A9270; A9270-GY; C1786; C1894; C1898; J0690; J1630; J1644; J2250; J3010; J7030; J7040

== ENCOUNTER 2020-02-17 16:05 | Inpatient (IN) | payer MEDICARE, BC ==
[~2020-02-17] VITALS: Ht 185.4 cm; Wt 100.1 kg
[2020-02-17 17:06] LABS: BASOPHILS ABSOLUTE AUTO 0.02 K/mm3 (0.00-0.23); BASOPHILS PERCENT AUTO 0 % (0-2); EOSINOPHILS ABSOLUTE AUTO 0.01 K/mm3 (0.00-0.68); EOSINOPHILS PERCENT AUTO 0 % (0-6); Hematocrit 33.5 % (37.0-53.0); Hemoglobin 11.1 g/dL (13.5-17.5); IMMATURE GRAN ABSOLUTE AUTO 0.09 K/mm3 (0.00-0.10); IMMATURE GRAN PERCENT AUTO 1 % (0-1); LYMPHOCYTES PERCENT AUTO 4 % (21-46); MONOCYTES PERCENT AUTO 6 % (4-13); Mean Corpuscular HGB 32.5 pg (26.0-34.0); Mean Corpuscular HGB Conc 33.1 g/dL (31.5-36.5); Mean Corpuscular Volume 98 fL (80-100); Mean Platelet Volume 10.4 fL (9.1-12.4); NEUTROPHILS ABSOLUTE AUTO 16.56 K/mm3 (1.96-9.15); NEUTROPHILS PERCENT AUTO 90 % (41-73); Platelet Count 193 K/mm3 (150-400); RDW Standard Deviation 46.4 fL (35.1-46.3); Red Blood Cell Count 3.42 M/mm3 (4.30-5.90); White Blood Cell Count 18.48 K/mm3 (4.00-11.30)
[2020-02-17 17:26] LABS: Albumin, Blood 3.1 g/dL (3.4-5.0); Albumin/Globulin Ratio 0.7 (0.8-1.8); Bilirubin, Total 0.8 mg/dL (0.1-1.0); Bun/Creatinine Ratio 26.9 (12.0-20.0); Calcium, Blood 8.6 mg/dL (8.5-10.1); Creatinine, Blood 1.82 mg/dL (0.60-1.20); Globulin, Blood 4.3 g/dL (2.2-4.0); Potassium, Blood 4.3 mmol/L (3.5-5.5); Total Protein, Blood 7.4 g/dL (6.4-8.2)
[2020-02-17] MEDS ORDERED: QUETIAPINE FUMA50 M2 PO (21:00)
[2020-02-18 05:39] LABS: BASOPHILS ABSOLUTE AUTO 0.03 K/mm3 (0.00-0.23); BASOPHILS PERCENT AUTO 0 % (0-2); EOSINOPHILS PERCENT AUTO 0 % (0-6); Hematocrit 30.9 % (37.0-53.0); Hemoglobin 10.2 g/dL (13.5-17.5); IMMATURE GRAN ABSOLUTE AUTO 0.37 K/mm3 (0.00-0.10); IMMATURE GRAN PERCENT AUTO 2 % (0-1); LYMPHOCYTES PERCENT AUTO 2 % (21-46); MONOCYTES ABSOLUTE AUTO 1.62 K/mm3 (0.16-1.47); MONOCYTES PERCENT AUTO 7 % (4-13); Mean Corpuscular HGB 32.3 pg (26.0-34.0); Mean Corpuscular Volume 98 fL (80-100); Mean Platelet Volume 10.8 fL (9.1-12.4); NEUTROPHILS ABSOLUTE AUTO 21.43 K/mm3 (1.96-9.15); NEUTROPHILS PERCENT AUTO 90 % (41-73); Platelet Count 179 K/mm3 (150-400); RDW Coefficient Variation 13.2 % (11.7-14.2); RDW Standard Deviation 47.8 fL (35.1-46.3); Red Blood Cell Count 3.16 M/mm3 (4.30-5.90); White Blood Cell Count 23.95 K/mm3 (4.00-11.30)
[2020-02-18 06:00] LABS: Albumin/Globulin Ratio 0.8 (0.8-1.8); Bilirubin, Total 0.9 mg/dL (0.1-1.0); Bun/Creatinine Ratio 24.5 (12.0-20.0); Calcium, Blood 8.2 mg/dL (8.5-10.1); Creatinine, Blood 1.96 mg/dL (0.60-1.20)
--- NOTE | 2020-02-18 06:50 | NUR ---
SHIFT SUMMARY PT WAS A NEW ADMIT DURING THE NIGHT, ARRIVING ON THE FLOOR AT 2217. PT WAS ADMITTED FOR LLE CELLULITIS AND SEPSIS. HE IS A&O X SELF AND FAMILY ONLY WITH A HX OF ALZHEIMERS/DEMENTIA, WITH 24 HR CAREGIVERS CURRENTLY IN THE ROOM AT BEDSIDE TO AID WITH CARE. PT SPIKED A FEVER DURING THE NIGHT OF 103.[address] GILL, HE WAS MEDICATED WITH A SECOND DOSE OF TYLENOL. ON RECHECK, PT'S TEMP CAME DOWN TO 102.6, BUT HIS FEVER BROKE BY 0109 AND WAS 98.2. ALL OTHER VITALS STABLE. TELE SHOWED NSR IN THE 60-70S. HE IS ON 2L OF O2 DUE TO DESATTING DOWN TO 88% IN THE ED. NO COMPLAINTS OF ACUTE PAIN, NAUSEA OR SOB. PT SLEPT THROUGH THE NIGHT, ONLY AWAKING TO STIMULATION. THIS AM, IT WAS NOTED BY CAREGIVERS THAT THE PT HAD NOT URINATED SINCE 1700 YESTERDAY. HE WAS BLADDER SCANNED, AND HAD > [address] GILL WAS INFORMED, AND AN ORDER TO STRAIGHT CATH DONE. NO OTHER ACUTE CHANGES IN PT CONDITION NOTED SINCE ADMISSION TO THE FLOOR. WILL CONTINUE TO MONITOR AND TREAT PER EMAR UNTIL HAND OFF TO DAY SHIFT RN.
--- NOTE | 2020-02-18 18:50 | NUR ---
Shift Summary A/O to self and caregivers, denies knowing date, time, president, hospital, or situation. When asking questions, patient is reluctant to answer and when he does, it's almost always "No." When attempting conversations with patient, he appears to not want to be bothered as evidence by one word responses and eyes closed during conversations. Denies pain, nausea, vomiting, diarrhea. 2-max assist to bedside commode in order to void. Caregiver at bedside this whole shift. Tele: Paced 60. Low grade temp of 99.4 at the end of shift, otherwise VSS. Will continue to monitor and report to oncoming RN.
[2020-02-19 04:46] LABS: BASOPHILS ABSOLUTE AUTO 0.02 K/mm3 (0.00-0.23); BASOPHILS PERCENT AUTO 0 % (0-2); EOSINOPHILS ABSOLUTE AUTO 0.02 K/mm3 (0.00-0.68); EOSINOPHILS PERCENT AUTO 0 % (0-6); Hematocrit 29.9 % (37.0-53.0); Hemoglobin 9.9 g/dL (13.5-17.5); IMMATURE GRAN ABSOLUTE AUTO 0.07 K/mm3 (0.00-0.10); IMMATURE GRAN PERCENT AUTO 1 % (0-1); LYMPHOCYTES ABSOLUTE AUTO 0.49 K/mm3 (0.84-5.20); LYMPHOCYTES PERCENT AUTO 3 % (21-46); MONOCYTES ABSOLUTE AUTO 1.03 K/mm3 (0.16-1.47); MONOCYTES PERCENT AUTO 7 % (4-13); Mean Corpuscular HGB 31.9 pg (26.0-34.0); Mean Corpuscular HGB Conc 33.1 g/dL (31.5-36.5); Mean Corpuscular Volume 97 fL (80-100); NEUTROPHILS ABSOLUTE AUTO 13.86 K/mm3 (1.96-9.15); NEUTROPHILS PERCENT AUTO 90 % (41-73); Platelet Count 169 K/mm3 (150-400); RDW Coefficient Variation 13.2 % (11.7-14.2); RDW Standard Deviation 47.3 fL (35.1-46.3); White Blood Cell Count 15.49 K/mm3 (4.00-11.30)
[2020-02-19 05:19] LABS: Calcium, Blood 8.3 mg/dL (8.5-10.1); Creatinine, Blood 1.86 mg/dL (0.60-1.20); Potassium, Blood 4.1 mmol/L (3.5-5.5)
--- NOTE | 2020-02-19 06:59 | NUR ---
SHIFT SUMMARY: VSS. TEMP 100 AT BEGINNING OF NIGHT, DOWN TO 98.9 THIS AM. FENTANYL GIVEN FOR L FOOT PAIN. PT SLEPT AFTER. IV ABT INFUSED PER ORDERS. AAOX SELF AND CAREGIVERS. REPEATS WHAT HE HEARS. UP TO BSC W/HEAVY 2 ASSIST. VOIDED 750 W/PVR OF 242. NO ACUTE CHANGES OVERNIGHT. WILL CONT TO MONITOR.
--- NOTE | 2020-02-19 13:37 | NUR ---
HE IS ASLEEP WITH HIS CAREGIVER AT HIS SIDE. HE DID GET UP ONTO THE BSC WITH 2 HELP EARLIER. HE HAD AN XTRA LG BM AND VOIDED 500 MILD. WHEN WE TRIED TO DO HID PVR BLADDER SCAN, HE REFUDED. HE IS A 2 PERSON MAX TRANSFER WITH A GAITBELT. TELE READS PACED IN THE 60'S.
--- NOTE | 2020-02-19 17:06 | NUR ---
HE HAS HAD A CAREGIVER WITH HIM ALL DAY EXCEPT WHEN SHE TAKES HER BREAKS. HIS MOOD HAS BEEN CALM WHILE LYING IN THE BED BUT GOT ANGRY AND THREATENING WHEN WE GOT HIM UP TO THE BSC EARLIER. HE SMELLED POOP AND WANTED OUT! HE WAS UNABLE TO PROCESS THAT IT WAS HIS POOP WHICH WAS WHY HE WAS GETTING UP TO THE BSC AND THAT THE SMELL WOULD GO AWAY WHEN HE WAS DONE AND CLEANED UP. HE HAD A BEDBATH AFTER HIS BM. HE DID BETTER FOLLOWING DIRECTIONS AFTER HIS BM THAN BEFORE. CBG'S ARE STABLE. VSS. BLD CULTURES NEGATIVE. TEMP 99.9. TELE SHOWS PACED RYTHM 60'S. AFTER VOIDING THIS AM HE REFUSED A BLADDER SCAN TO CHECK RESIDUAL.
[2020-02-20 04:25] LABS: BASOPHILS ABSOLUTE AUTO 0.02 K/mm3 (0.00-0.23); BASOPHILS PERCENT AUTO 0 % (0-2); EOSINOPHILS ABSOLUTE AUTO 0.04 K/mm3 (0.00-0.68); EOSINOPHILS PERCENT AUTO 0 % (0-6); Hematocrit 28.5 % (37.0-53.0); Hemoglobin 9.5 g/dL (13.5-17.5); IMMATURE GRAN ABSOLUTE AUTO 0.06 K/mm3 (0.00-0.10); IMMATURE GRAN PERCENT AUTO 1 % (0-1); LYMPHOCYTES PERCENT AUTO 6 % (21-46); MONOCYTES ABSOLUTE AUTO 0.81 K/mm3 (0.16-1.47); MONOCYTES PERCENT AUTO 7 % (4-13); Mean Corpuscular HGB 32.1 pg (26.0-34.0); Mean Corpuscular HGB Conc 33.3 g/dL (31.5-36.5); Mean Corpuscular Volume 96 fL (80-100); Mean Platelet Volume 10.8 fL (9.1-12.4); NEUTROPHILS ABSOLUTE AUTO 10.47 K/mm3 (1.96-9.15); NEUTROPHILS PERCENT AUTO 87 % (41-73); Platelet Count 179 K/mm3 (150-400); RDW Coefficient Variation 13.2 % (11.7-14.2); Red Blood Cell Count 2.96 M/mm3 (4.30-5.90)
[2020-02-20 04:46] LABS: Bun/Creatinine Ratio 28.1 (12.0-20.0); Calcium, Blood 8.3 mg/dL (8.5-10.1); Creatinine, Blood 1.99 mg/dL (0.60-1.20); Potassium, Blood 3.8 mmol/L (3.5-5.5)
--- NOTE | 2020-02-20 04:51 | NUR ---
SHIFT SUMMARY: VSS. TEMP 99.4 THIS AM. 02 91-95% ON RA. PT REFUSES 02. LSCTA. REPORTS PAIN IN ENTIRE LLE. FENTANYL GIVEN X 1 W/PT APPEARING TO REST COMFORTABLY AFTER. L FOOT CONT W/REDNESS, SWELLING, AND HOT TO TOUCH. FOOT ELEVATED ON 2 PILLOWS. L FOOT VERY TENDER TO LIGHT TOUCH. PEDAL PULSES THREADY. IV ABT INFUSED PER ORDERS. WILL CONT TO MONITOR.
--- NOTE | 2020-02-20 05:22 | NUR ---
PT REFUSED TO USE URINAL MS JEANODE, NURSE NOTIFIED
--- NOTE | 2020-02-20 18:44 | NUR ---
PT AO AND CONFUSED AT TIMES. PT HAS CAREGIVERS AROUND THE CLOCK WITH HIM. PT DENIED ANY PAIN AND IS A VERY HEAVY TWO PERSON TO BEDSIDE COMODE. PT HAS BEEN COOPERATIVE UNTIL LAST PART OF SHIFT. PT WAS INCONTENT OF URINE AND REFUSED TO BE CLEANED UP. TRIED TO GET PT TO GET HELP TO BEDSIDE COMMODE PT REFUSED. WOULD NOT LET GAIT BELT BE PLACED AND THEN WOULD NOT LET THIS RUMPER CLEAN HIME UP IN THE BED AND CHANGE SHEETS. NIGHT NURSE HAS BEEN MADE AWARE AND WILL TRY AGAIN WHEN HIS MAIN CAREGIVER ARRIVES BACK TONIGHT.
[2020-02-20 19:37] LABS: BASOPHILS ABSOLUTE AUTO 0.03 K/mm3 (0.00-0.23); BASOPHILS PERCENT AUTO 0 % (0-2); EOSINOPHILS ABSOLUTE AUTO 0.06 K/mm3 (0.00-0.68); EOSINOPHILS PERCENT AUTO 1 % (0-6); Hemoglobin 10.2 g/dL (13.5-17.5); IMMATURE GRAN ABSOLUTE AUTO 0.07 K/mm3 (0.00-0.10); IMMATURE GRAN PERCENT AUTO 1 % (0-1); LYMPHOCYTES ABSOLUTE AUTO 0.64 K/mm3 (0.84-5.20); LYMPHOCYTES PERCENT AUTO 7 % (21-46); MONOCYTES PERCENT AUTO 9 % (4-13); Mean Corpuscular HGB 32.3 pg (26.0-34.0); Mean Corpuscular HGB Conc 32.9 g/dL (31.5-36.5); Mean Corpuscular Volume 98 fL (80-100); Mean Platelet Volume 10.8 fL (9.1-12.4); NEUTROPHILS ABSOLUTE AUTO 7.45 K/mm3 (1.96-9.15); NEUTROPHILS PERCENT AUTO 82 % (41-73); Platelet Count 188 K/mm3 (150-400); RDW Coefficient Variation 13.4 % (11.7-14.2); Red Blood Cell Count 3.16 M/mm3 (4.30-5.90); White Blood Cell Count 9.05 K/mm3 (4.00-11.30)
--- NOTE | 2020-02-20 21:57 | NUR ---
CALLED HOSPITALIST PT BECOMING INCREASINGLY AGITATED. THE PT'S SON AND CAREGIVER INFORMED ME THAT THIS IS THE PT'S PATTERN WHENEVER HOSPITALIZED FOR TOO LONG AWAY FROM HOME. THEY INFORMED ME THAT IN THE PAST THE PT'S SEROQUEL DOSE WAS INCREASED TO GOOD EFFECT. I DID CALL THE HOSPITALIST AND INFORM HER, THE PT'S SEROQUEL WAS INCREASED THIS SHIFT. 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 THE HOSPITALIST ALSO DC'D TELEMETRY MONITORING.
--- NOTE | 2020-02-21 05:03 | NUR ---
SHIFT SUMMARY ADMITTED FOR SEPSIS, POSSIBLY FROM CELLULITIS OF LLE. HIS REGULAR CAREGIVERS ARE IN THE ROOM. HE SPEAKS INAPPROPRIATELY AND REFUSES SOME CARE. HIS SON IS POA. HIS SON INFORMS ME THAT THE PT'S BEHAVIOR WORSENS THE LONGER HE IS AWAY FROM HOME. SEROQUEL WAS INCREASED THIS SHIFT TO 150 MG. THE PT WAS ALLOWED TO SLEEP MUCH POSSIBLE, WE ARE BUNDLING CARE AND COORDINATING WITH LAB AND NURSING ASSISTANTS. PLAN IS TO EVENTUALLY SWITCH TO PO ANTIBIOTICS WHEN INDICATED. TELEMETRY WAS DC'D THIS SHIFT WHEN PT REFUSED TO WEAR IT. THE SON WOULD LIKE TO BE INFORMED OF ANY CHANGES OR DECISIONS FOR PLAN OF CARE.
[2020-02-21 06:48] LABS: Bun/Creatinine Ratio 31.9 (12.0-20.0); Calcium, Blood 8.4 mg/dL (8.5-10.1); Creatinine, Blood 1.88 mg/dL (0.60-1.20); Potassium, Blood 3.9 mmol/L (3.5-5.5)
--- NOTE | 2020-02-21 16:08 | NUR ---
PT IS ALERT AND ABLE TO FOLLOW REQUESTS FROM STAFF. HE THINKS HE IS [place] AND IS NOT ORIENTED WITH TIME. HE KNOWS HIS CG AND IS ABLE TO EXPRESS ANY NEEDS. PT CAN BE RUDE AND BLUNT BUT REDIRECTS MOST OF THE TIME. HE REQUIRES 2 ASSIST TO BSC. LEFT FOOT CONTINUES TO BE RED AND PAINFUL. IV ABX ORDERED AND GIVEN. CALL LIGHT WITHIN REACH.
--- NOTE | 2020-02-22 04:43 | NUR ---
SHIFT SUMMARY ADMITTED FOR SEPSIS/POSSIBLE CELLULITIS OF LLE. FULL CODE. SON, WHO IS POA EXPRESSES CONCERN OVER TREATMENT FOR HIS FATHER. HE REQUESTS A PHONE CALL FROM THE PHYSICIAN. IV ANTIBIOTICS ARE SCHEDULED. PT DID RUN A LOW GRADE FEVER EARLY IN SHIFT BUT THIS DID RESPOND TO TYLENOL.
[2020-02-22 05:52] LABS: BASOPHILS ABSOLUTE AUTO 0.06 K/mm3 (0.00-0.23); BASOPHILS PERCENT AUTO 1 % (0-2); EOSINOPHILS ABSOLUTE AUTO 0.21 K/mm3 (0.00-0.68); EOSINOPHILS PERCENT AUTO 2 % (0-6); Hemoglobin 10.1 g/dL (13.5-17.5); IMMATURE GRAN ABSOLUTE AUTO 0.21 K/mm3 (0.00-0.10); IMMATURE GRAN PERCENT AUTO 2 % (0-1); LYMPHOCYTES ABSOLUTE AUTO 0.84 K/mm3 (0.84-5.20); LYMPHOCYTES PERCENT AUTO 9 % (21-46); MONOCYTES ABSOLUTE AUTO 0.93 K/mm3 (0.16-1.47); MONOCYTES PERCENT AUTO 9 % (4-13); Mean Corpuscular HGB 31.8 pg (26.0-34.0); Mean Corpuscular HGB Conc 32.6 g/dL (31.5-36.5); Mean Corpuscular Volume 98 fL (80-100); Mean Platelet Volume 10.5 fL (9.1-12.4); NEUTROPHILS ABSOLUTE AUTO 7.61 K/mm3 (1.96-9.15); NEUTROPHILS PERCENT AUTO 77 % (41-73); Platelet Count 229 K/mm3 (150-400); RDW Standard Deviation 46.5 fL (35.1-46.3); Red Blood Cell Count 3.18 M/mm3 (4.30-5.90); White Blood Cell Count 9.86 K/mm3 (4.00-11.30)
[2020-02-22 06:07] LABS: Bun/Creatinine Ratio 32.4 (12.0-20.0); Calcium, Blood 8.6 mg/dL (8.5-10.1); Creatinine, Blood 1.82 mg/dL (0.60-1.20); Potassium, Blood 3.8 mmol/L (3.5-5.5)
--- NOTE | 2020-02-22 16:39 | NUR ---
PT CONTINUES TO BE VERY CRUDE WITH STAFF AND HIS PERSONAL CAREGIVERS. HE IS A MAX 2 ASSIST TO BSC OFTEN CHANGING HIS MIND MID TRANSFER. AFFECTED FOOT IS STILL RED AND DOES NOT SEEM VISUALLY TO BE IMPROVING. PT STILL CONTINUES TO COMPLAIN OF PAIN . ABX GIVEN PER EMAR. CAREGIVER PRESENT THROUGH OUT THE DAY. CALL LIGHT WITHIN REACH THOUGH PATIENT PREFERS TO YELL FOR ASSISTANCE BY CALLING "HEY MOTHER F*CKER".
--- NOTE | 2020-02-23 09:12 | NUR ---
WEED BURNER SUMMARY Patient slept well after receiving HS Seroquel. Extremely foul languqge used on all female staff members including his own caregivers. Patient did have 8/10 pain in left foot around 0100. Pain resolved with 50mcg fentynal and elevating his foot on pillows. OOB once with two person maximum assist pivot with gait belt to [facility] [place] [facility].
--- NOTE | 2020-02-23 11:43 | NUR ---
CAREGIVER REPORTS NIGHT TIME DOSE OF SEROQUEL SHOULD BE 100MG PER HOME MEDS, NOT 150MG HAS BEEN GIVEN THE LAST TWO NIGHTS. DISCUSSED WITH DR. FRASER. VERBAL ORDER GIVEN TO CHANGE BEDTIME SEROQUEL TO 100MG PO.
[2020-02-23 13:41] LABS: Vancomycin, Trough 23.2 ug/mL (5.0-10.0)
--- NOTE | 2020-02-23 17:52 | NUR ---
SHIFT SUMMARY; CAREGIVER WITH PT THROUGHOUT SHIFT. HX OF DEMENTIA, ORIENTED TO BASELINE PER CAREGIVER. MEDICATED PER ORDERS DURING SHIFT WITH INSULIN COVERAGE NEEDED. ASSISTED TO BEDSIDE COMMODE WITH 2 PERSON MAX ASSIST. LEFT FOOT REMAINS RED AND SWOLLEN TO MID THIGH. FOOT WARM WITH CAP REFILL <3. PEDAL PULSE FAINT DUE TO EDEMA BUT REMAINS PALPABLE. AWAITING CONSULT FOR VASCULAR. REPOSITIONED THROUGHOUT DAY FOR COMFORT. WILL CONTINUE TO MONITOR AND TREAT UNTIL CHANGE OF SHIFT.
--- NOTE | 2020-02-24 04:53 | NUR ---
CONDITIONING MACHINE OPERATOR SUMMARY Patient more subdued overnight. Mumbling under breath to himself. Left foot continues to be very red and warm. Patient and caregiver have it elevated on a pillow with no weight on top. Dr. Coleman was in to see patient last night and felt the foot was still vascular and that it wasn't time to consider revascularization yet. See note. At 0430, patient pulled out new IV and refused restart. As Patient is no longer on IV antibiotics, I did not argue with him at that time. No change in physical assessment since last night.
--- NOTE | 2020-02-24 16:43 | NUR ---
SHIFT SUMMARY PATIENT MEDICATED X3 FOR PAIN THIS SHIFT. PATIENT DENIES NAUSEA AND SHORTNESS OF BREATH. PATIENT UP TO BSC/CHAIR 2MAX STAND PIVOT WITH GAIT BELT. IV FLUIDS AND ABX RESTARTED. DR. JAMA CONSULTED. BONE SCAN COMPLETED, ECHO COMPLETED. NEW BLOOD CULTURES DRAWN. CAREGIVER AT BEDSIDE.
[2020-02-24 19:32] LABS: Albumin, Blood 2.3 g/dL (3.4-5.0); Anion Gap 8 mmol/L (6-16); Blood Urea Nitrogen 75 mg/dL (8-24); Bun/Creatinine Ratio 26.2 (12.0-20.0); CO2, Blood 18 mmol/L (21-32); Chloride, Blood 115 mmol/L (98-108); Creatinine, Blood 2.86 mg/dL (0.60-1.20); Glomerular Filtration Rate 23 (60-); Glucose, Blood 190 mg/dL (70-99); Phosphorus, Blood 6.1 mg/dL (2.5-4.9); Potassium, Blood 5.1 mmol/L (3.5-5.5); Sodium, Blood 141 mmol/L (136-145)
--- NOTE | 2020-02-24 20:02 | NUR ---
DR JAMA NOTIFIED OF STAT LABS AND PLACED NEW ORDERS. PHARMACY NOTIFIED OF NEW FLUID ORDERS AND PLACED.
--- NOTE | 2020-02-24 21:55 | NUR ---
PATIENT VERBALLY AGITATED AND REPORTS DOESN'T WANT TO BE TURNED BUT LISTEN TO CAREGIVER AND TURNED AND REPOSITIONED. PATIENT INITIALLY REFUSED MEDICATION AND THAN TOOK MEDICATION WHEN CAREGIVER REPORTED TO TAKE MEDS AND ASSISTED. PATIENT REPORTED HE WOULD HIT STAFF IF TOO CLOSE AND CAREGIVER REPORTED HE WOULD NOT. STAFF APPROPRIATELY MONITORED PATIENT WHEN CLOSE TO HIM.
--- NOTE | 2020-02-24 22:24 | NUR ---
CAREGIVER REPORTS PATIENT HAVING INSOMNIA AND MELATONIN 5 MG GIVEN PER EMAR.
--- NOTE | 2020-02-25 04:31 | NUR ---
SHIFT SUMMARY PATIENT HAD NO ACUTE CHANGES OBSERVED. AXOX 2 WITH HX OF DEMENTIA. BEDREST. INAPPROPRIATE LANGUAGE AT START OF SHIFT TO HIS CAREGIVERS AND STAFF. CAREGIVERS ABLE TO REDIRECT FOR MEDICATION ADMINISTRATION AND REPOSITIONING. PIV REMAINS INTACT. CBG 178. 1/2 NS BICARBONATE 75 MEQ INFUSING AT 75 mL/HR. MELATONIN 5 MG GIVEN FOR INSOMNIA PER EMAR. VSS/AFEBRILE. REPORTED LEFT FOOT PAIN X ONE AND IV FENTANYL 50 MCG GIVEN PER EMAR. CAREGIVERS PRESENT T/O SHIFT. CALL LIGHT IN REACH. BED IN LOWEST POSITION. WILL CONTINUE TO MONITOR UNTIL DAY SHIFT NURSE ASSUMES CARE.
[2020-02-25 05:17] LABS: BASOPHILS ABSOLUTE AUTO 0.07 K/mm3 (0.00-0.23); BASOPHILS PERCENT AUTO 1 % (0-2); EOSINOPHILS ABSOLUTE AUTO 0.31 K/mm3 (0.00-0.68); EOSINOPHILS PERCENT AUTO 3 % (0-6); Hemoglobin 9.2 g/dL (13.5-17.5); IMMATURE GRAN ABSOLUTE AUTO 0.44 K/mm3 (0.00-0.10); IMMATURE GRAN PERCENT AUTO 5 % (0-1); LYMPHOCYTES ABSOLUTE AUTO 0.93 K/mm3 (0.84-5.20); LYMPHOCYTES PERCENT AUTO 10 % (21-46); MONOCYTES ABSOLUTE AUTO 0.99 K/mm3 (0.16-1.47); MONOCYTES PERCENT AUTO 11 % (4-13); Mean Corpuscular HGB 32.1 pg (26.0-34.0); Mean Corpuscular HGB Conc 32.9 g/dL (31.5-36.5); Mean Corpuscular Volume 98 fL (80-100); Mean Platelet Volume 10.4 fL (9.1-12.4); NEUTROPHILS ABSOLUTE AUTO 6.31 K/mm3 (1.96-9.15); NEUTROPHILS PERCENT AUTO 70 % (41-73); Platelet Count 268 K/mm3 (150-400); RDW Coefficient Variation 13.4 % (11.7-14.2); RDW Standard Deviation 48.1 fL (35.1-46.3); Red Blood Cell Count 2.87 M/mm3 (4.30-5.90); White Blood Cell Count 9.05 K/mm3 (4.00-11.30)
[2020-02-25 05:31] LABS: Albumin, Blood 2.3 g/dL (3.4-5.0); Anion Gap 9 mmol/L (6-16); Blood Urea Nitrogen 77 mg/dL (8-24); Bun/Creatinine Ratio 26.2 (12.0-20.0); CO2, Blood 20 mmol/L (21-32); Calcium, Blood 8.1 mg/dL (8.5-10.1); Chloride, Blood 112 mmol/L (98-108); Creatinine, Blood 2.94 mg/dL (0.60-1.20); Glomerular Filtration Rate 22 (60-); Glucose, Blood 144 mg/dL (70-99); Magnesium, Blood 2.2 mg/dL (1.6-2.4); Phosphorus, Blood 5.9 mg/dL (2.5-4.9); Potassium, Blood 4.8 mmol/L (3.5-5.5); Sodium, Blood 141 mmol/L (136-145)
--- NOTE | 2020-02-25 16:54 | NUR ---
SHIFT SUMMARY. ALERT, ORIENTATED TO SELF AND CAREGIVER, 2 PERSON ASSIST TO BSC. CAREGIVER AT BEDSIDE ALMOST ENTIRELY. PT CONTINUES WITH PAIN TO L FOOT THAT HAS BEEN MANAGED WELL WITH CURRENT ORDERS. PT HAD ONE EPISODE OF NAUSEA WITH EMESIS THAT WAS MANAGED WELL WITH CURRENT ORDERS. NO SOB. PT WITH INTERMITTENT INAPROPRIATE CONVERSATION INCLUDING SWEARING AND RUDE COMMENTS TO STAFF AND CAREGIVERS. PT REDIRECTED EACH TIME THIS RN PRESENT THAT THIS BEHAVIOR IS INNAPROPRIATE, PT WOULD OFTEN APOLOGIZE AFTER REDIRECTION.
[2020-02-26 05:22] LABS: BASOPHILS ABSOLUTE AUTO 0.06 K/mm3 (0.00-0.23); BASOPHILS PERCENT AUTO 1 % (0-2); EOSINOPHILS ABSOLUTE AUTO 0.22 K/mm3 (0.00-0.68); EOSINOPHILS PERCENT AUTO 2 % (0-6); Hematocrit 25.9 % (37.0-53.0); Hemoglobin 8.3 g/dL (13.5-17.5); IMMATURE GRAN ABSOLUTE AUTO 0.36 K/mm3 (0.00-0.10); IMMATURE GRAN PERCENT AUTO 4 % (0-1); LYMPHOCYTES ABSOLUTE AUTO 0.98 K/mm3 (0.84-5.20); LYMPHOCYTES PERCENT AUTO 11 % (21-46); MONOCYTES ABSOLUTE AUTO 0.95 K/mm3 (0.16-1.47); MONOCYTES PERCENT AUTO 11 % (4-13); Mean Corpuscular HGB 31.4 pg (26.0-34.0); Mean Corpuscular Volume 98 fL (80-100); Mean Platelet Volume 9.7 fL (9.1-12.4); NEUTROPHILS ABSOLUTE AUTO 6.42 K/mm3 (1.96-9.15); NEUTROPHILS PERCENT AUTO 71 % (41-73); Platelet Count 272 K/mm3 (150-400); RDW Coefficient Variation 13.6 % (11.7-14.2); RDW Standard Deviation 48.2 fL (35.1-46.3); Red Blood Cell Count 2.64 M/mm3 (4.30-5.90); White Blood Cell Count 8.99 K/mm3 (4.00-11.30)
--- NOTE | 2020-02-26 05:32 | NUR ---
SHIFT SUMMARY PATIENT HAD NO ACUTE CHANGES OBSERVED. AXOX 2 WITH HX OF DEMENTIA. INAPPROPRIATE VERBAL COMMENTS TO STAFF AND CAREGIVERS T/O SHIFT. TWO ASSIST TO BSC WITH GAIT BELT. REPORTED LEFT FOOT PAIN AND NORCO GIVEN PER EMAR. PIV REMAINS INTACT. 1/2 NS BICARB 75 MEQ INFUSING AT 50mL/HR. MELATONIN GIVEN FOR INSOMNIA. VSS/AFEBRILE. DENIES SOB AND N/V. CAREGIVER PRESENT T/O SHIFT. CALL LIGHT IN REACH. BED IN LOWEST POSITION. WILL CONTINUE TO MONITOR UNTIL DAY SHIFT NURSE ASSUMES CARE.
[2020-02-26 05:54] LABS: Albumin, Blood 2.2 g/dL (3.4-5.0); Anion Gap 9 mmol/L (6-16); Blood Urea Nitrogen 70 mg/dL (8-24); Bun/Creatinine Ratio 27.3 (12.0-20.0); CO2, Blood 21 mmol/L (21-32); Calcium, Blood 7.9 mg/dL (8.5-10.1); Chloride, Blood 112 mmol/L (98-108); Creatinine, Blood 2.56 mg/dL (0.60-1.20); Glomerular Filtration Rate 26 (60-); Glucose, Blood 139 mg/dL (70-99); Magnesium, Blood 2.2 mg/dL (1.6-2.4); Phosphorus, Blood 5.4 mg/dL (2.5-4.9); Potassium, Blood 4.7 mmol/L (3.5-5.5); Sodium, Blood 142 mmol/L (136-145)
--- NOTE | 2020-02-26 10:03 | NUR ---
PT APPEARS TO BE SLEEPING, ENTERED ROOM TO ADMINISTER AM MEDS, CAREGIVER REQUESTED THAT MEDS HELD TILL PT AWAKENS.
--- NOTE | 2020-02-26 17:57 | NUR ---
SHIFT SUMMARY. CELLULITIS OF L FOOT/ANKLE CONTINUES TO IMPROVE, PINK COLOR FADING, WARM BUT NOT HOT. PT DENIED NEED FOR PAIN MEDICATION TODAY, NO S/SX OF PAIN. PT WITH GOOD MEAL INTAKE. TWO PERSONAL ASSIT TO BSC, CONTINENT. CONTINUES WITH IV NS WITH BICARB PER ORDERS. NO NEW CHANGES OR CONCERNS.
--- NOTE | 2020-02-27 04:29 | NUR ---
SHIFT SUMMARY PATIENT HAD NO ACUTE CHANGES OBSERVED. AXOX 2 AND TWO ASSIST WITH GAIT BELT TO BSC. TAKES MEDICATION WHOLE WITH WATER. CAREGIVER PRESENT T/O SHIFT. PIV REMAINS INTACT. NS BICARB INFUSING AT 50 mL/HR. CELLULITIS LEFT FOOT IMPROVING. PATIENT CONTINUES TO BE VERBALLY INAPPROPRIATE TO MOST. NORCO GIVEN FOR LEFT FOOT PAIN X ONE. DENIES SOB AND N/V. VSS/AFEBRILE. CALL LIGHT IN REACH. BED IN LOWEST POSITION. WILL CONTINUE TO MONITOR UNTIL DAY SHIFT NURSE ASSUMES CARE.
[2020-02-27 05:09] LABS: BASOPHILS ABSOLUTE AUTO 0.08 K/mm3 (0.00-0.23); BASOPHILS PERCENT AUTO 1 % (0-2); EOSINOPHILS PERCENT AUTO 2 % (0-6); Hematocrit 27.2 % (37.0-53.0); Hemoglobin 8.9 g/dL (13.5-17.5); IMMATURE GRAN ABSOLUTE AUTO 0.29 K/mm3 (0.00-0.10); IMMATURE GRAN PERCENT AUTO 3 % (0-1); LYMPHOCYTES PERCENT AUTO 9 % (21-46); MONOCYTES ABSOLUTE AUTO 1.04 K/mm3 (0.16-1.47); MONOCYTES PERCENT AUTO 9 % (4-13); Mean Corpuscular HGB Conc 32.7 g/dL (31.5-36.5); Mean Corpuscular Volume 98 fL (80-100); NEUTROPHILS ABSOLUTE AUTO 8.45 K/mm3 (1.96-9.15); NEUTROPHILS PERCENT AUTO 77 % (41-73); Platelet Count 302 K/mm3 (150-400); RDW Coefficient Variation 13.4 % (11.7-14.2); RDW Standard Deviation 48.3 fL (35.1-46.3); Red Blood Cell Count 2.78 M/mm3 (4.30-5.90); White Blood Cell Count 11.06 K/mm3 (4.00-11.30)
[2020-02-27 05:35] LABS: Albumin, Blood 2.3 g/dL (3.4-5.0); Anion Gap 6 mmol/L (6-16); Blood Urea Nitrogen 61 mg/dL (8-24); Bun/Creatinine Ratio 27.4 (12.0-20.0); CO2, Blood 24 mmol/L (21-32); Calcium, Blood 8.3 mg/dL (8.5-10.1); Chloride, Blood 112 mmol/L (98-108); Creatinine, Blood 2.23 mg/dL (0.60-1.20); Glomerular Filtration Rate 31 (60-); Glucose, Blood 121 mg/dL (70-99); Phosphorus, Blood 4.2 mg/dL (2.5-4.9); Potassium, Blood 4.6 mmol/L (3.5-5.5); Sodium, Blood 142 mmol/L (136-145)
[2020-02-27] MEDS ORDERED: BUME1 PO (12:56)
[2020-02-27] MEDS ORDERED: ACET325 PO (13:00)
[2020-02-27] MEDS ORDERED: VISBIOME PROBIOTIC PO (13:03)
[2020-02-27] MEDS ORDERED: LEVOFLOXACIN250 MG PO (13:05)
[2020-02-27] MEDS ORDERED: CLOTRIMAZOLE AF2824 TOP (13:06)
--- NOTE | 2020-02-27 13:23 | NUR ---
DISCHARGE DR WATERS IN TO SEE PT THIS AM, ASSESS L FOOT CELLULITIS. STATE OK FOR D/C HOME TODAY w HOME HEALTH F/U. [facility] D/C RESOURCING ADVISOR IN TO SEE PT/CAREGIVER, ARRANGE HH. CAREGIVER STATE SHE WILL PROVIDE TRANSPORT HOME. IV SITE D/C INTACT. NEW SCRIPTS FAXED TO [facility]/REQUEST. D/C INSTRUCT REVIEWED W CAREGIVER. SHE ASSIST PT TO DRESS/GATHER BELONGINGS, PROVIDE W/C ESCORT FROM HOSP. STATE SATISFACTION.
== END 2020-02-27 13:20 | disposition home or self-care (01) | DRG 872 ==
LOC: ER 16:05 → MEDS 20:44 → ER 22:03 → MEDS 22:25 → ENPENDDIS 02-27 12:27 → MEDS 02-27 13:20
PROVIDERS: Internal Medicine; Internal Medicine Endocrinology, Diabetes & Metabolism; Internal Medicine Gastroenterology; Internal Medicine Nephrology; Physician Assistant; ADMIT Internal Medicine
DX: A41.9 Sepsis, unspecified organism (principal); L03.116 Cellulitis of left lower limb; N17.9 Acute kidney failure, unspecified; F01.51 Vascular dementia, unspecified severity, with behavioral disturbance; I13.0 Hypertensive heart and chronic kidney disease with heart failure and stage 1 through stage 4 chronic kidney disease, or unspecified chronic kidney disease; I50.32 Chronic diastolic (congestive) heart failure; R65.20 Severe sepsis without septic shock; E11.22 Type 2 diabetes mellitus with diabetic chronic kidney disease; E11.51 Type 2 diabetes mellitus with diabetic peripheral angiopathy without gangrene; N18.30 Chronic kidney disease, stage 3 unspecified; N14.4 Toxic nephropathy, not elsewhere classified; I70.209 Unspecified atherosclerosis of native arteries of extremities, unspecified extremity; Z79.4 Long term (current) use of insulin; I69.918 Other symptoms and signs involving cognitive functions following unspecified cerebrovascular disease; E78.00 Pure hypercholesterolemia, unspecified; N40.0 Benign prostatic hyperplasia without lower urinary tract symptoms; I35.0 Nonrheumatic aortic (valve) stenosis; D63.1 Anemia in chronic kidney disease; R19.7 Diarrhea, unspecified; Z95.4 Presence of other heart-valve replacement; T36.8X5A Adverse effect of other systemic antibiotics, initial encounter; I25.2 Old myocardial infarction; E78.5 Hyperlipidemia, unspecified; F32.9 Major depressive disorder, single episode, unspecified; Z79.82 Long term (current) use of aspirin; Z87.891 Personal history of nicotine dependence
CPT/HCPCS: 36415; 71045; 73590; 73620; 73701; 76770; 78300; 78315; 80048; 80053; 80069; 80202; 82565; 82947; 83605; 83735; 83880; 85025; 85651; 86141; 87040; 87070; 87205; 93926; 93971; 96365; 96366; 97110; 97162; 97165; 99285-25; A9270; A9270-GY; A9561; C8929; J0295; J0692; J0881; J1650; J1956; J2405; J2543; J3010; J3370; J3480; J7030; J7050; Q9957; Q9967

== ENCOUNTER → 2020-05-22 | Outpatient (CLI) | payer MEDICARE, BC ==
[~2020-05-22] MED LIST changes: +CLOTRIMAZOLE AF2824 TOP; +LEVOFLOXACIN250 MG PO; +QUETIAPINE FUMA50 M2 PO; +VISBIOME PROBIOTIC PO
[2020-05-22 13:03] LABS: Source, Urine Voided
[2020-05-22 13:41] LABS: Appearance, Urine Clear (Clear); Bilirubin, Urine Neg (Neg); Blood, Urine 1+ (Neg); Color, Urine Yellow (P-Yellow); Glucose Qualitative, Urine Neg (Normal); Ketones, Urine Neg (Neg); Leukocyte Esterase, Urine Neg (Neg); Nitrite, Urine Neg (Neg); Protein, Urine Neg (Neg); Specific Gravity, Urine 1.015 (1.003-1.022); Urobilinogen, Urine NORM (Normal)
[2020-05-22 13:42] LABS: Bacteria Few /hpf; Granular Casts 0-2 /lpf (0); Squamous Epithelial Cells Rare /hpf (Few); White Blood Cells, Urine 0-2 /hpf (0-5)
== END | disposition home or self-care (01) ==
LOC: LAB EV 12:00 → LAB SHORT 12:00
PROVIDERS: Physician Assistant
DX: R30.9 Painful micturition, unspecified (principal)
CPT/HCPCS: 81001

== ENCOUNTER 2022-01-20 15:47 | Inpatient (IN) | payer MEDICARE, BC ==
[~2022-01-20] VITALS: Ht 198.1 cm; Wt 102.0 kg
[~2022-01-20 15:47] MED LIST changes: -MELATONIN5 M1 PO
[2022-01-20] MEDS ORDERED: MELATONIN5 M1 PO (16:46)
[2022-01-20] MEDS ORDERED: TRAZ50 PO (16:47)
[2022-01-20 18:36] LABS: Magnesium, Blood 2.4 mg/dL (1.6-2.4)
[2022-01-20 18:39] LABS: Albumin, Blood 2.8 g/dL (3.4-5.0); Albumin/Globulin Ratio 0.6 (0.8-1.8); Bilirubin, Total 0.6 mg/dL (0.1-1.0); Bun/Creatinine Ratio 36.8 (12.0-20.0); Calcium, Blood 8.6 mg/dL (8.5-10.1); Creatinine, Blood 1.85 mg/dL (0.60-1.20); Globulin, Blood 4.7 g/dL (2.2-4.0); Phosphorus, Blood 4.1 mg/dL (2.5-4.9); Potassium, Blood 3.8 mmol/L (3.5-5.5); Thyroid Stimulating Hormone 2.15 uIU/mL (0.360-4.800); Total Protein, Blood 7.5 g/dL (6.4-8.2)
--- NOTE | 2022-01-20 19:40 | NUR ---
SHIFT SUMMARY- PT ALERT AND ORIENTED TO SELF AND FAMILY. PT WAS A DIRECT ADMIT FROM [facility] FOR CHF EXACERBATION PER REPORT THE PT BNP WAS 1700. PT HAS NO VISUAL SWELLING IN THE EXTREMITIES LUNG SOUNDS COARSE IN THE UPPER AND DIMINISHED FINE CRACKLES IN THE BASES. PT HAS A VERY AUDIBLE HEART MURMUR (Hx AORTIC STENOSIS AND VALVE REPAIR) MD AWARE. ECHO ORDERED, PT ON TELE PACED AT 60 AT THE TIME OF ADMIT. PT HAS A Hx DEMENTIA WITH BEHAVIORAL DISTURBANCE AND CAN BE OFFENSIVE (PER REPORT FROM HIS SON WHO IS MEDICAL POA). PASSED ALL ON IN BEDSIDE REPORT TO NIGHT EMERALD COBIAN.
--- NOTE | 2022-01-20 19:50 | NUR ---
PT ALERT TO SELF, FAMILY, AND SURROUNDINGS. MOSTLY STATES NO TO QUESTIONS ASKED OF HIM. DENIES NEEDS. TELE IN PLACE. PACED AT 60. WILL CONTINUE TO PROVIDE CARE T/O SHIFT. BED ALARM ON. CALL LT IN REACH.
--- NOTE | 2022-01-20 22:00 | NUR ---
PT RESTING QUIETLY. BED ALARM ON. CALL LT IN REACH.
[2022-01-20 22:20] LABS: Albumin, Blood 2.8 g/dL (3.4-5.0); Anion Gap 11 mmol/L (6-16); Blood Urea Nitrogen 72 mg/dL (8-24); CO2, Blood 23 mmol/L (21-32); Calcium, Blood 8.4 mg/dL (8.5-10.1); Chloride, Blood 94 mmol/L (98-108); Glomerular Filtration Rate 39 (60-); Glucose, Blood 118 mg/dL (70-99); Phosphorus, Blood 3.9 mg/dL (2.5-4.9); Potassium, Blood 3.8 mmol/L (3.5-5.5); Sodium, Blood 128 mmol/L (136-145)
--- NOTE | 2022-01-21 00:17 | NUR ---
PT RESTING QUIETLY. BED ALARM ON. CALL LT IN REACH.
--- NOTE | 2022-01-21 01:56 | NUR ---
PT CONTINUES TO REST QUIETLY. BED ALARM ON. CALL LT IN REACH.
--- NOTE | 2022-01-21 02:21 | NUR ---
COMPLETE BED CHANGE DONE. PT HAD PULLED CONDOM CATH OFF, URINE SOAKED THE BED SHEET AND DRIPPED ONTO THE FLOOR. NEW ATTENDS PLACED ON PT AFTER PERICARE DONE. WARM BLANKETS PLACED ON PT. CALL LT PLACED WITHIN REACH. BED ALARM ON.
--- NOTE | 2022-01-21 03:47 | NUR ---
SHIFT SUMMARY: ALERT TO NAME, FAMILY, AND SURROUNDINGS. CURRENTLY ON 1L VIA NC. RESP E/U. TAKES MEDS WHOLE WITH WATER. IV IS SL. RECEIVED 40MG IV LASIX AND ABX'S DURING SHIFT. UNABLE TO GET AN ACCURATE OUTPUT D/T PT HAD PULLED OFF CONDOM CATH. PT HAD TWO LARGE UNMEASURED INCONTINENT VOIDS. VENTRICULAR PACED AT [address] ROBB HOSE IN [address]. HX OF DEMENTIA. RESTED WELL T/O SHIFT. NO ACUTE CHANGES. WILL CONTINUE TO PROVIDE CARE UNTIL SHIFT REPORT.
--- NOTE | 2022-01-21 04:00 | NUR ---
REPOSITIONED PT AFTER LAB DRAW. NO OTHER NEEDS. PT COOPERATIVE. CALL LT IN REACH. BED ALARM ON.
[2022-01-21 05:22] LABS: Magnesium, Blood 2.4 mg/dL (1.6-2.4)
[2022-01-21 05:23] LABS: Albumin, Blood 2.6 g/dL (3.4-5.0); Albumin/Globulin Ratio 0.6 (0.8-1.8); Bilirubin, Total 0.7 mg/dL (0.1-1.0); Bun/Creatinine Ratio 42.9 (12.0-20.0); Calcium, Blood 8.3 mg/dL (8.5-10.1); Creatinine, Blood 1.68 mg/dL (0.60-1.20); Globulin, Blood 4.7 g/dL (2.2-4.0); Phosphorus, Blood 4.2 mg/dL (2.5-4.9); Potassium, Blood 3.5 mmol/L (3.5-5.5); Total Protein, Blood 7.3 g/dL (6.4-8.2)
--- NOTE | 2022-01-21 05:59 | NUR ---
PT CONTINUES TO REST QUIETLY. NO NEEDS AT THIS TIME. BED ALARM ON. CALL LT IN REACH.
--- NOTE | 2022-01-21 07:44 | NUR ---
called dr mensah- PT HAS AN ORDER FOR IV POTASSIUM, HOWEVER THE CONCERN STAFF HAVE WITH STARTING A CONTINUIOUS INFUSION THAT IS UNCOMFORTABLE IS THAT IT COULD MAKE THE PT COMBATIVE. PT HAS BEEN PLEASENT TO THIS POINT, EFFORTS ARE BEING MADE TO KEEP HIM PLEASENT. RECIEVED OK FOR PT TO RECIEVE PO POTASSIUM RATHER THAN THE IV POTASSIUM.
--- NOTE | 2022-01-21 17:50 | NUR ---
SHIFT SUMMARY- PT ALERT AND ORIENTED TO SELF. PT GOT OOB FOR BREAKFAST AND SAT UP FOR ABOUT TWO HOURS. PT WAS ASSISTED BACK TO BED BUT HAD VERY LITTLE ENERGY LEFT. PT DID NOT GET OOB AGAIN THIS SHIFT. PT HAS REQUIRED MULTIPLE LINNEN CHANGES D/T VERY LARGE INCONTINENT VOIDS. PLACED AN EXTRA LINER IN ATTENDS TO TRY TO PREVENT THE NEED FOR FULL LINNEN CHANGE NEXT TIME. PT IN BED, CALL LIGHT IN REACH, HE DOES NOT CALL. PT HAS BEEN VERY TIRED AND SLEPT ALOT THROUGHOUT THE DAY, HE HAS BEEN PLEASENTLY CONFUSED FOR MOST OF IT. BED ALARM SET FOR PT SAFETY. PT HAD AN ECHO DONE TODAY, AFTER THE RESULTS WERE READ DR SPOKE TO DISCHARGE PLANNING, PLAN IS FOR THE PT TO DISCHARGE TO [facility] H[facility]PICE. WILL CTM AND PASS ON TO NIGHT RN IN BEDSIDE REPORT.
--- NOTE | 2022-01-22 05:31 | NUR ---
LEADED GLASS INSTALLER SUMMARY ADMITTED FOR CHF. PT IS DNR. HE HAS A HISTORY OF DEMENTIA WITH SOME DISTURBANCES. PT HAS BEEN PLEASANT WITH THIS RN THIS SHIFT. FOLLOWING DIRECTIONS WITH MULTIPLE PROMPTS. PT IS INCONTINENT - ATTENDS IN PLACE THROUGHOUT THE NIGHT. HE WAS MEDICATED ONCE WITH TYLENOL FOR COMPLAINT OF HEADACHE. TELE HAS BEEN PACED AT 60. NO OTHER CONCERNS THIS SHIFT.
--- NOTE | 2022-01-22 17:51 | NUR ---
SHIFT SUMMARY- PT ALERT AND ORIENTED TO SELF AND FAMILY. PT HAS BEEN UP TO THE CHAIR FOR MEALS TODAY, HE WORKED WITH PT AND OT AND WAS EVALUATED, FOR POSSIBLE PLACEMENT, BY DIYA FAROOQ. PT SEEMS TO BE HAVING MORE DIFFICULTY TOLLERATING ACTIVITY TODAY WHEN COMPARED TO YESTERDAY. PLAN IS FOR HIM TO DISCHARGE ON HOSPICE. PT DID HAVE A SIX BEAT RUN OF V-TACH, NOTIFIED. TELE DC'D. PT HAD A FULL BED BATH AND A SHAVE. PT IS CURRENTLY IN BED SLEEPING CALL LIGHT IN REACH NO S&S OF DISTRESS AT THIS TIME.
--- NOTE | 2022-01-23 07:38 | NUR ---
E COMMERCE DIRECTOR SUMMARY PT AWAITING PLACEMENT AT [facility] WITH HOSPICE. HE IS ALERT AND ORIENTED TO SELF. FOLLOWING DIRECTIONS WITH MULTIPLE PROMPTS. SLEEPING THROUGHOUT THE NIGHT. HE MUMBLES TO HIMSELF. PT HAVING INCREASED URINARY RETENTION AND DIFFICULTY URINATING. BLADDER SCANS SHOW >600.
[2022-01-23 09:10] LABS: Albumin, Blood 2.6 g/dL (3.4-5.0); Anion Gap 6 mmol/L (6-16); Blood Urea Nitrogen 53 mg/dL (8-24); Bun/Creatinine Ratio 36.1 (12.0-20.0); CO2, Blood 29 mmol/L (21-32); Calcium, Blood 8.2 mg/dL (8.5-10.1); Chloride, Blood 107 mmol/L (98-108); Creatinine, Blood 1.47 mg/dL (0.60-1.20); Glomerular Filtration Rate 49 (60-); Glucose, Blood 108 mg/dL (70-99); Phosphorus, Blood 3.2 mg/dL (2.5-4.9); Potassium, Blood 3.7 mmol/L (3.5-5.5); Sodium, Blood 142 mmol/L (136-145)
--- NOTE | 2022-01-23 17:19 | NUR ---
DAYSHIFT SUMMARY Patient resting comfortably in bed, patient sitting on edge of bed to eat meals. Sleeping most of the day, even when visitors come, he falls back asleep. Patient worked with Physical therapy twice today & OT once. No acute changes, patient awaiting placement.
--- NOTE | 2022-01-24 06:41 | NUR ---
MOISES SLEPT MOST OF THE NIGHT. HE WAS ASSISTED BY STAFF TO REPOSITION EVERY 2-3 HOURS. PATIENT HAD ONLY ONE EPISODE OF INCONTINENCE AROUND 0400, AND IT WAS A VERY LARGE VOID REQUIRING THE ENTIRE BED TO BE CHANGED. AFTER THIS, MOISES REFUSED A BLADDER SCAN AND "JUST WANTED TO BE LEFT ALONE" MINIMAL COMPLAINT OF LOW BACK PAIN AT HS WHICH WAS RESOLVED WITH TYLENOL.
--- NOTE | 2022-01-24 19:20 | NUR ---
SHIFT SUMMARY PATIENT PLEASANTLY DEMENTED. DOES RESPOND TO QUESTIONS AND FOLLOWS DIRECTIONS. KEEPS EYES SHUT AT ALL TIMES. CHF EXACERBATION RESOLVED. PLAN IS TO DC TO SNF ON HOSPICE. 2 PERSON MAX ASSIST TO CHAIR. DOES NOT ENGAGE WELL WITH PT/OT. MULTIPLE CHANGES OF ATTENDS THIS SHIFT. TAKES PILLS WHOLE WITH WATER. SON WAS PRESENT IN AM AND SPOKE WITH DR SMALLWOOD ABOUT THE PLAN. REPORT GIVEN TO LOG STACKER OPERATOR RN.
--- NOTE | 2022-01-25 17:46 | NUR ---
NO ACUTE CHANGES AT THIS TIME. PT DID REFUSE HIS AM MEDS AND THEN HIS SON WAS ABLE TO GET PT TO TAKE THEM. PT LATER REFUSED HIS 1800 MEDS WELL. PT TALKING TO HIMSELF IN BE AND NOT AWARE OF MUCH. PT NOT EATING WELL AT THIS TIME AND HAS NOT EATEN WELL. BED ALARM IN PLACE WILL CONTINUE TO MONITOR.
--- NOTE | 2022-01-26 08:14 | NUR ---
TABLE GAMES DEALER SUMMARY PATIENT APPEARS FAR MORE WITHDRAWN AND DEPRESSED THAN THE PAST TWO NIGHTS. INITIALLY REFUSED HS MEDS SAYINS "I WONT SIT UP OR TAKE PILLS." AROUND 2100, PATIENT STATED HE WAS HAVING LEFT SIDED CHEST PAIN AND INDICATED THAT IT WAS ALSO PAINFUL IN HIS LEFT JAW AND AXILLARY AREA. HOSPITALIST WAS NOTIFIED, AND ORDERED A STAT EKG, 2 HIGH SENSITIVITY TROPONINS AND NITROGLYCERIN. THIS RN WAS IN THE PATIENTS ROOM ENTERING ORDERS AND EXPLAINING THEM TO THE PATIENT, HE GOT QUITE UPSET AND VERY CLEARLY SAID "I DON'T WANT ANYTHING!". STOP NOW! IT WAS EXPLAINED THAT THE NITROGLYCERINE COULD GET RID OF THE CHEST PAIN, EVEN IF HE WOULDN'T ALLOW ANYTHING ELSE. HE REFUSED IT TWICE, THEN STATED IF IT CAME BACK, HE WOULD TAKE SOME TYLENOL. A FEW HOURS LATER, I SAT DOWN WITH THE PATIENT AND ENCOURAGED HIM TO LET US PLACE ANOTHER PERIPHERAL IV. AGAIN, THE PATIENT ADAMANTLY SAID NO. ANOTHER CALL PLACED TO HOSPITALIST EXPLAINING THAT THE PATIENT HAD REFUSED AN IV RESTART 3 TIMES OVER THE LAST SEVERAL HOURS, AND ASKED IF HIS IV AZYTHROMYCIN (250MG) COULD BE CHANGED TO A 250MG ORAL DOSE, AND COULD WE GET AN OK TO LEAVE IV OUT ORDER. HOSPITALIST STATED THAT HE WAS ALSO ON IV ROCEPHIN WHICH DOES NOT HAVE AN EQUIVELANT DOSE. FOR THAT REASON, HE RECOMMENDED THAT WE KEEP TRYING TO CONVINCE THE PATIENT. OF THIS MORNING, THIS GENTLEMAN IS CONTINUING TO REFUSE ANOTHER IV START.
--- NOTE | 2022-01-26 17:59 | NUR ---
SHIFT SUMMARY PATIENT DENIES PAIN, NAUSEA, AND SHORTNESS OF BREATH. PATIENT IS A 2P FOR TRANSFERS. PATIENT DID TAKE MORNING MEDICATIONS WITH HELP OF SON. PATIENT SLEPT ON AND OFF THROUGHOUT SHIFT. PATIENT WOULD WAKE UP AND SIT UP FOR MEALS. PATIENT AGREEABLE WITH CARE THIS SHIFT. PATIENT IS EATING AND DRINKING WELL. PATIENT WAS PLEASANT AND COOPERATIVE WITH CARE THIS SHIFT.
--- NOTE | 2022-01-27 06:02 | NUR ---
PT who has dc planning for home with hospice services continues to need max assist for transfers toileting & bed mobility. Pleasant confusion but can refuse cares or rx. Son was in explained to just tell PT to take meds & provide water quickly after piutting them in mouth. Incontinent of bowel & bladder.
--- NOTE | 2022-01-27 17:17 | NUR ---
SHIFT SUMMARY PATIENT DENIES PAIN, NAUSEA, AND SHORTNESS OF BREATH. PATIENT IS A 2P FOR ASSIST. PATIENT SLEPT MOST OF SHIFT. PATIENT TOOK MEDICATIONS WITHOUT ISSUES. PATIENT AGREEABLE TODAY TO PERSONAL CARE AND REPOSITIONING. PATIENT HAS POOR PO INTAKE, BUT DID DRINK GLUCERNA. PATIENT SON VISITED. PATIENT IS PLEASANT AND COOPERATIVE WITH CARE.
--- NOTE | 2022-01-28 13:06 | NUR ---
DISCHARGE PATIENT TRANSPORTED VIA GURNEY BY [facility] TO [facility]. PATIENT DISCHARGED ON HOSPICE. DISCHARGE INSTRUCTIONS SENT TO [facility]. MEDICATIONS SENT TO [facility]. BELONGINGS SENT TO [facility]. PATIENT ON 2L VIA N/C AT TIME OF DISCHARGE. PATIENT SON NOTIFIED OF TRANSFER. REPORT GIVEN TO OZZY MARMOLEJO AT [facility]. [facility] TO SCHEDULED FOLLOW UP NEEDED. DISTRIBUTION DISPATCHER INFORMED OF DISCHARGE.
[2022-01-28 13:10] LABS: Influenza A, PCR NEGATIVE (NEGATIVE); Influenza B, PCR NEGATIVE (NEGATIVE); Resp Syncytial Virus, PCR NEGATIVE (NEGATIVE); SARS-Cov-2 (COVID-19) PCR, MMC NEGATIVE (NEGATIVE)
== END 2022-01-28 13:00 | disposition hospice, inpatient (51) | DRG 291 ==
LOC: MEDS 15:47
PROVIDERS: Hospitalist; ADMIT Family Medicine
DX: I13.0 Hypertensive heart and chronic kidney disease with heart failure and stage 1 through stage 4 chronic kidney disease, or unspecified chronic kidney disease (principal); I50.33 Acute on chronic diastolic (congestive) heart failure; N17.9 Acute kidney failure, unspecified; E87.1 Hypo-osmolality and hyponatremia; F01.51 Vascular dementia, unspecified severity, with behavioral disturbance; Z66 Do not resuscitate; Z20.822 Contact with and (suspected) exposure to COVID-19; Z51.5 Encounter for palliative care; E87.6 Hypokalemia; I35.0 Nonrheumatic aortic (valve) stenosis; E11.51 Type 2 diabetes mellitus with diabetic peripheral angiopathy without gangrene; E11.22 Type 2 diabetes mellitus with diabetic chronic kidney disease; N18.30 Chronic kidney disease, stage 3 unspecified; F32.A Depression, unspecified; I48.91 Unspecified atrial fibrillation; I25.10 Atherosclerotic heart disease of native coronary artery without angina pectoris; Z95.0 Presence of cardiac pacemaker; Z95.1 Presence of aortocoronary bypass graft; Z95.4 Presence of other heart-valve replacement; Z88.6 Allergy status to analgesic agent; Z88.8 Allergy status to other drugs, medicaments and biological substances; Z79.4 Long term (current) use of insulin; Z79.01 Long term (current) use of anticoagulants; Z79.82 Long term (current) use of aspirin; Z79.899 Other long term (current) drug therapy
CPT/HCPCS: 0241U; 36415; 71046; 80053; 80069; 82947; 83735; 83880; 84100; 84145; 84443; 84484; 85025; 87040; 93306; 97110; 97161; 97166; 97530; 97535; A9270; J0456; J0696; J1940; J7050

== ENCOUNTER → 2022-01-20 | Outpatient (CLI) | payer MEDICARE, BC ==
[~2022-01-20] MED LIST changes: +MELATONIN5 M1 PO
[2022-01-20 14:47] LABS: BASOPHILS ABSOLUTE AUTO 0.04 K/mm3 (0.00-0.23); BASOPHILS PERCENT AUTO 1 % (0-2); EOSINOPHILS ABSOLUTE AUTO 0.16 K/mm3 (0.00-0.68); EOSINOPHILS PERCENT AUTO 3 % (0-6); Hematocrit 32.5 % (37.0-53.0); Hemoglobin 11.1 g/dL (13.5-17.5); IMMATURE GRAN ABSOLUTE AUTO 0.02 K/mm3 (0.00-0.10); IMMATURE GRAN PERCENT AUTO 0 % (0-1); LYMPHOCYTES PERCENT AUTO 10 % (21-46); MONOCYTES PERCENT AUTO 12 % (4-13); Mean Corpuscular HGB 29.5 pg (26.0-34.0); Mean Corpuscular HGB Conc 34.2 g/dL (31.5-36.5); Mean Corpuscular Volume 86 fL (80-100); Mean Platelet Volume 10.2 fL (9.1-12.4); NEUTROPHILS ABSOLUTE AUTO 4.35 K/mm3 (1.96-9.15); NEUTROPHILS PERCENT AUTO 74 % (41-73); Platelet Count 236 K/mm3 (150-400); RDW Coefficient Variation 15.2 % (11.7-14.2); RDW Standard Deviation 47.8 fL (35.1-46.3); Red Blood Cell Count 3.76 M/mm3 (4.30-5.90); White Blood Cell Count 5.87 K/mm3 (4.00-11.30)
== END | disposition home or self-care (01) ==
LOC: LAB SHORT 14:43
PROVIDERS: Physician Assistant
DX: R53.83 Other fatigue (principal)
CPT/HCPCS: 83880; 85025

== ENCOUNTER 2022-10-02 05:30 | Emergency (ER) | payer MEDICARE, BC ==
[~2022-10-02] VITALS: Ht 170.2 cm; Wt 81.7 kg
[~2022-10-02 05:30] MED LIST changes: +MELATONIN5 M1 PO
[2022-10-02 05:42] LABS: BASOPHILS ABSOLUTE AUTO 0.08 K/mm3 (0.00-0.23); BASOPHILS PERCENT AUTO 1 % (0-2); EOSINOPHILS ABSOLUTE AUTO 0.22 K/mm3 (0.00-0.68); EOSINOPHILS PERCENT AUTO 3 % (0-6); Hematocrit 30.2 % (37.0-53.0); Hemoglobin 10.1 g/dL (13.5-17.5); IMMATURE GRAN ABSOLUTE AUTO 0.02 K/mm3 (0.00-0.10); IMMATURE GRAN PERCENT AUTO 0 % (0-1); LYMPHOCYTES ABSOLUTE AUTO 0.78 K/mm3 (0.84-5.20); LYMPHOCYTES PERCENT AUTO 10 % (21-46); MONOCYTES ABSOLUTE AUTO 0.58 K/mm3 (0.16-1.47); MONOCYTES PERCENT AUTO 7 % (4-13); Mean Corpuscular HGB 30.8 pg (26.0-34.0); Mean Corpuscular HGB Conc 33.4 g/dL (31.5-36.5); Mean Corpuscular Volume 92 fL (80-100); NEUTROPHILS ABSOLUTE AUTO 6.37 K/mm3 (1.96-9.15); NEUTROPHILS PERCENT AUTO 79 % (41-73); Platelet Count 288 K/mm3 (150-400); RDW Standard Deviation 47.5 fL (35.1-46.3); Red Blood Cell Count 3.28 M/mm3 (4.30-5.90); White Blood Cell Count 8.05 K/mm3 (4.00-11.30)
[2022-10-02 06:03] LABS: Albumin, Blood 2.7 g/dL (3.4-5.0); Albumin/Globulin Ratio 0.4 (0.8-1.8); Bilirubin, Total 0.5 mg/dL (0.1-1.0); Bun/Creatinine Ratio 49.3 (12.0-20.0); Calcium, Blood 8.6 mg/dL (8.5-10.1); Creatinine, Blood 1.48 mg/dL (0.60-1.20); Potassium, Blood 4.2 mmol/L (3.5-5.5); Total Protein, Blood 8.7 g/dL (6.4-8.2)
[2022-10-02] MEDS ORDERED: ONDA4ODT MM (08:02)
[2022-10-02 12:58] VITALS: BP 108/72
== END 2022-10-02 12:59 | disposition home or self-care (01) ==
LOC: ER 05:30
PROVIDERS: Emergency Medicine
DX: K52.9 Noninfective gastroenteritis and colitis, unspecified (principal); I25.10 Atherosclerotic heart disease of native coronary artery without angina pectoris; I12.9 Hypertensive chronic kidney disease with stage 1 through stage 4 chronic kidney disease, or unspecified chronic kidney disease; N18.30 Chronic kidney disease, stage 3 unspecified; E78.5 Hyperlipidemia, unspecified; G47.00 Insomnia, unspecified; Z87.891 Personal history of nicotine dependence
CPT/HCPCS: 80053; 82947; 85025; 96361; 96374; 99284-25; J2405; J7030

== ENCOUNTER 2023-09-26 00:31 | Emergency (ER) | payer MEDICARE, BC ==
[~2023-09-26] VITALS: Ht 175.3 cm; Wt 72.6 kg
[2023-09-26 01:17] LABS: BASOPHILS ABSOLUTE AUTO 0.06 K/mm3 (0.00-0.23); BASOPHILS PERCENT AUTO 1 % (0-2); EOSINOPHILS ABSOLUTE AUTO 0.07 K/mm3 (0.00-0.68); EOSINOPHILS PERCENT AUTO 1 % (0-6); Hemoglobin 11.5 g/dL (13.5-17.5); IMMATURE GRAN ABSOLUTE AUTO 0.04 K/mm3 (0.00-0.10); IMMATURE GRAN PERCENT AUTO 1 % (0-1); LYMPHOCYTES ABSOLUTE AUTO 0.58 K/mm3 (0.84-5.20); LYMPHOCYTES PERCENT AUTO 8 % (21-46); MONOCYTES ABSOLUTE AUTO 0.66 K/mm3 (0.16-1.47); MONOCYTES PERCENT AUTO 9 % (4-13); Mean Corpuscular HGB 31.5 pg (26.0-34.0); Mean Corpuscular HGB Conc 32.9 g/dL (31.5-36.5); Mean Corpuscular Volume 96 fL (80-100); Mean Platelet Volume 10.6 fL (9.1-12.4); NEUTROPHILS ABSOLUTE AUTO 6.17 K/mm3 (1.96-9.15); NEUTROPHILS PERCENT AUTO 81 % (41-73); Platelet Count 175 K/mm3 (150-400); RDW Standard Deviation 59.7 fL (35.1-46.3); Red Blood Cell Count 3.65 M/mm3 (4.30-5.90); White Blood Cell Count 7.58 K/mm3 (4.00-11.30)
[2023-09-26 01:28] LABS: Albumin/Globulin Ratio 0.7 (0.8-1.8); Bilirubin, Total 0.6 mg/dL (0.1-1.0); Bun/Creatinine Ratio 52.9 (12.0-20.0); Calcium, Blood 8.9 mg/dL (8.5-10.1); Creatinine, Blood 1.36 mg/dL (0.60-1.20); Globulin, Blood 4.6 g/dL (2.2-4.0); Potassium, Blood 4.7 mmol/L (3.5-5.5); Total Protein, Blood 7.6 g/dL (6.4-8.2)
[2023-09-26] MEDS ORDERED: Amoxicillin/Clavulanate K 875 MG Tab PO ONE (02:00)
[2023-09-26] MEDS ORDERED: AMOCLA875 PO (02:02)
[2023-09-26 04:00] VITALS: BP 129/64
== END 2023-09-26 02:30 | disposition home or self-care (01) ==
LOC: ER 00:31
PROVIDERS: Student in an Organized Health Care Education/Training Program
DX: K04.7 Periapical abscess without sinus (principal); Z87.891 Personal history of nicotine dependence; Z88.5 Allergy status to narcotic agent; Z88.8 Allergy status to other drugs, medicaments and biological substances; Z79.82 Long term (current) use of aspirin; Z79.4 Long term (current) use of insulin; Z79.899 Other long term (current) drug therapy; Z86.73 Personal history of transient ischemic attack (TIA), and cerebral infarction without residual deficits
CPT/HCPCS: 80053; 85025; 99283; A9270